=== PATIENT | female | born 1965 | race Caucasian/White ===

== ENCOUNTER 2017-11-11 18:27 | Emergency (ER) | payer OTHER, MEDICAID ==
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
[2017-11-11 20:33] VITALS: BP 149/72; PULSE 58; RESP 15; TEMP 97
== END 2017-11-11 20:31 | disposition home or self-care (01) ==
LOC: EC 18:27
DX: S16.1XXA Strain of muscle, fascia and tendon at neck level, initial encounter (principal); V89.2XXA Person injured in unspecified motor-vehicle accident, traffic, initial encounter; Y92.410 Unspecified street and highway as the place of occurrence of the external cause
CPT/HCPCS: 72125; 99284

== ENCOUNTER → 2017-11-21 | Outpatient (CLI) | payer MEDICAID ==
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
== END | disposition home or self-care (01) ==
LOC: RADXRYALE 09:31
PROVIDERS: ATTEND Physician Assistant Medical
DX: R07.89 Other chest pain (principal)

== ENCOUNTER → 2018-01-02 | Outpatient (CLI) | payer MEDICAID ==
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
== END | disposition home or self-care (01) ==
LOC: RADXRYALE 13:22
PROVIDERS: ATTEND Physician Assistant Medical
DX: M54.2 Cervicalgia (principal)
CPT/HCPCS: 72050

== ENCOUNTER → 2018-03-29 | Outpatient (CLI) | payer MEDICAID ==
--- NOTE | 2018-03-29 17:54 | CT ---
EXAMINATION TYPE: CT abdomen w con DATE OF EXAM: 03/29/2018 COMPARISON: 10/31/2008 HISTORY: 35 lbs gained in several months, jaundice, ascites CT DLP: 1542 mGycm Automated exposure control for dose reduction was used. TECHNIQUE: Helical acquisition of images was performed from the lung bases through the top of iliac crest to include entire abdomen. CONTRAST: Performed with Oral Contrast and with IV Contrast, patient injected with 100 mL of Isovue 300. FINDINGS: There are bilateral pleural effusions. This is larger on the right side. There is no pericardial effu viola. Heart is slightly enlarged. There is heterogeneity in the liver consistent with cirrhosis. There is no focal splenic mass. There is moderate ascites fluid in the abdomen. There is no evidence of pancreatic mass. Gallbladder is not seen. The bile ducts are not dilated. There is no adrenal mass. Kidneys show satisfactory contrast opacification. There is no hydronephrosi s. There is no retroperitoneal adenopathy. Oral contrast appears normal in the small bowel. There is no evidence of bowel obstruction. There is no sign of free air. There is no mesenteric adenopathy or edema. There is subcutaneous edema around the abdomen. Lumbar spine is intact. I see no bony destruct precious process. IMPRESSION: THERE IS MODERATELY SEVERE ASCITES. THERE IS HETEROGENEITY IN THE LIVER CONSISTENT WITH CIRRHOSIS. NO DISCRETE LIVER MASS IDENTIFIED. Changes of cirrhosis and the ascites are new compared to old CT scan. Bilateral pleural effusions new compared to old exam.
== END ==
LOC: RADCTMAIN 16:07
PROVIDERS: ATTEND Physician Assistant Medical
DX: R18.8 Other ascites (principal); R93.2 Abnormal findings on diagnostic imaging of liver and biliary tract
CPT/HCPCS: 74160; Q9967

== ENCOUNTER → 2018-04-04 | Outpatient (CLI) | payer MEDICAID ==
--- NOTE | 2018-04-05 07:27 | XR ---
EXAMINATION TYPE: XR chest 2V DATE OF EXAM: 04/04/2018 COMPARISON: Chest x-ray November 21, 2017. CT abdomen March 29, 2018 HISTORY: Right-sided pleural effusion, abnormal CT. TECHNIQUE: Frontal and lateral views of the chest are obtained. FINDINGS: There is persistent small right pleural effusion as seen on recent CT likely product of un derlying abdominal ascites and underlying cirrhosis. Trace left pleural effusion on CT is redemonstra ralph on chest x-ray with subtle blunting of posterior costophrenic angle. There is redemonstration of compressive atelectasis right lung base. Upper lungs are clear without pneumothorax. The cardiac silh ouette size is mildly enlarged. The osseous structures are intact. IMPRESSION: Stable small right pleural effusion and tiny left pleural effusion presumed product of u nderlying abdominal ascites.
== END | disposition home or self-care (01) ==
LOC: RADXRYALE 16:51
PROVIDERS: ATTEND Physician Assistant Medical
DX: J90 Pleural effusion, not elsewhere classified (principal)
CPT/HCPCS: 71046

== ENCOUNTER → 2018-04-17 | Outpatient (CLI) | payer MEDICAID ==
--- NOTE | 2018-04-17 10:42 | XR ---
EXAMINATION TYPE: XR chest 2V DATE OF EXAM: 04/17/2018 COMPARISON: Chest x-ray April 04, 2018 and older studies HISTORY: Pleural effusion, abnormal prior x-ray. History of suspected cirrhosis. TECHNIQUE: Frontal and lateral views of the chest are obtained. FINDINGS: There is now moderate to large size right pleural effusion increased from prior with assoc iated compressive atelectasis. There is new left basilar acute infiltrate and/or atelectasis. No med iastinal shift is present currently. The cardiac silhouette size is stable and mildly enlarged. The osseous structures are intact. Cholecystectomy clips are noted. IMPRESSION: Worsening moderate to large size right pleural effusion without mediastinal shift. Corre late clinically as patient would be candidate for ultrasound guided thoracentesis for therapeutic catrachita efits if felt necessary. A Yellow level critical message alert has been initiated for Elvis Smith DO via the [facility] Critical Results System on 04/17/2018 10:40 AM. This message alert has been sent to Elvis loyd DO via the preferences provided by the clinician for the receipt of Radiology Critical Findings . Message ID [id number].
== END | disposition home or self-care (01) ==
LOC: RADXRYALE 10:25
PROVIDERS: ATTEND Family Medicine
DX: J90 Pleural effusion, not elsewhere classified (principal)
CPT/HCPCS: 71046

== ENCOUNTER 2018-04-18 13:16 | Inpatient (IN) | payer MEDICAID ==
--- NOTE | 2018-04-18 14:33 | ED ---
General Adult HPI - General Chief complaint: Shortness of Breath Stated complaint: SOB Time Seen by Provider: 04/18/18 13:25 Source: patient, RN notes reviewed Mode of arrival: wheelchair Limitations: no limitations - History of Present Illness Initial comments: This is a 52-year-old female who comes in with a past medical history significant for cirrhosis. Patient states she's been having difficulty breathing over the last week or so and is getting progressively worse. Her doctor did an x-ray recently and told her she had fluid her left lung and after breathing were to get worse to coming to the hospital. Patient states it has gotten worse and she seen her into the hospital. Patient denies any palpitations or chest pain. Patient denies any cough. Patient denies any fever or chills. Patient denies any lightheadedness dizziness or near syncopal episode. Patient denies any abdominal pain patient denies nausea vomiting diarrhea. Patient's only complaint is shortness of breath. Patient states she' s got increased edema to her feet and her abdomen has also been distended but she believes that is slightly improved. - Related Data Home Medications Medication Instructions Recorded Confirmed Furosemide [Lasix] 80 mg PO DAILY 04/18/18 04/18/18 Potassium Chloride [Klor-Con 10] 10 meq PO Q48H 04/18/18 04/18/18 Spironolactone 50 mg PO DAILY 04/18/18 04/18/18 Allergies Allergy/AdvReac Type Severity Reaction Status Date / Time No Known Allergies Allergy Verified 04/18/18 14:20 Review of Systems ROS Statement: Those systems with pertinent positive or pertinent negative responses have been documented in the HPI. ROS Other: All systems not noted in ROS Statement are negative. Past Medical History Past Medical History: No Reported History Additional Past Medical History / Comment(s): cirrhosis History of Any Multi-Drug Resistant Organisms: None Reported Past Surgical History: Cholecystectomy Past Psychological History: No Psychological Hx Reported Smoking Status: Never smoker Past Alcohol Use History: None Reported Past Drug Use History: None Reported General Exam - General Exam Comments Initial Comments: GENERAL: Patient is well-developed and well-nourished. Patient is nontoxic and well- hydrated and is in mild distress. ENT: Neck is soft and supple. No significant lymphadenopathy is noted. Oropharynx is clear. Moist mucous membranes. Neck has full range of motion without eliciting any pain. EYES: The sclera were anicteric and conjunctiva were pink and moist. Extraocular movements were intact and pupils were equal round and reactive to light. Eyelids were unremarkable. PULMONARY: Patient has diminished breath sounds on the right about fci up. CARDIOVASCULAR: Patient is tachycardic at about 110 beats a minute ABDOMEN: Patient's abdomen is distended but nontender. SKIN: Skin is clear with no lesions or rashes and otherwise unremarkable. NEUROLOGIC: Patient is alert and oriented x3. Cranial nerves II through XII are grossly intact. Motor and sensory are also intact. Normal speech, volume and content. Symmetrical smile. MUSCULOSKELETAL: Normal extremities with adequate strength and full range of motion. Patient has 2+ edema bilaterally LYMPHATICS: No significant lymphadenopathy is noted PSYCHIATRIC: Normal psychiatric evaluation. Limitations: no limitations Course Vital Signs 04/18/18 04/18/18 04/18/18 13:24 15:23 15:24 Temperature 98.3 F Pulse Rate 111 H 104 H Respiratory 18 18 24 Rate Blood Pressure 124/58 123/63 O2 Sat by Pulse 96 94 L Oximetry Medical Decision Making - Medical Decision Making EKG shows sinus tachycardia at 102 beats a minute AR interval 252 QRS is 88 QT interval 372 QTC is 47. Patient's EKG shows no ST segment elevation or depression. Chest x-ray shows a very large right-sided pleural effusion. I spoke with Dr. Wright he agreed to admit the patient admitted the patient I consult pulmonary wrote admitting orders. - Lab Data Result diagrams: 04/18/18 14:13 04/18/18 14:13 Lab Results 04/18/18 04/18/18 04/18/18 Range/Units 14:13 14:13 14:13 WBC 11.2 H (3.8-10.6) k/uL RBC 3.84 (3.80-5.40) m/uL Hgb 12.9 (11.4-16.0) gm/dL Hct 40.3 (34.0-46.0) % MCV 104.9 H D (80.0-100.0) fL MCH 33.5 (25.0-35.0) pg MCHC 31.9 (31.0-37.0) g/dL RDW 14.0 (11.5-15.5) % Plt Count 187 (150-450) k/uL Neutrophils % 74 % Lymphocytes % 16 % Monocytes % 5 % Eosinophils % 3 % Basophils % 1 % Neutrophils # 8.4 H (1.3-7.7) k/uL Lymphocytes # 1.8 (1.0-4.8) k/uL Monocytes # 0.6 (0-1.0) k/uL Eosinophils # 0.3 (0-0.7) k/uL Basophils # 0.1 (0-0.2) k/uL Macrocytosis Moderate PT (9.0-12.0) sec INR (<1.2) APTT (22.0-30.0) sec Sodium 136 L (137-145) mmol/L Potassium 2.9 L (3.5-5.1) mmol/L Chloride 95 L (98-107) mmol/L Carbon Dioxide 32 H (22-30) mmol/L Anion Gap 9 mmol/L BUN 7 (7-17) mg/dL Creatinine 0.53 (0.52-1.04) mg/dL Est GFR (CKD-EPI)AfAm >90 (>60 ml/min/1.73 sqM) Est GFR (CKD-EPI)NonAf >90 (>60 ml/min/1.73 sqM) Glucose 107 H (74-99) mg/dL Calcium 8.3 L (8.4-10.2) mg/dL Magnesium 1.9 (1.6-2.3) mg/dL Total Bilirubin 10.6 H (0.2-1.3) mg/dL AST 115 H (14-36) U/L ALT 39 (9-52) U/L Alkaline Phosphatase 146 H (38-126) U/L Total Creatine Kinase 39 (30-135) U/L CK-MB (CK-2) 0.4 (0.0-2.4) ng/mL CK-MB (CK-2) Rel Index 1.0 Troponin I <0.012 (0.000-0.034) ng/mL NT-Pro-B Natriuret Pep pg/mL Total Protein 7.9 (6.3-8.2) g/dL Albumin 3.1 L (3.5-5.0) g/dL 04/18/18 04/18/18 Range/Units 14:13 14:13 WBC (3.8-10.6) k/uL RBC (3.80-5.40) m/uL Hgb (11.4-16.0) gm/dL Hct (34.0-46.0) % MCV (80.0-100.0) fL MCH (25.0-35.0) pg MCHC (31.0-37.0) g/dL RDW (11.5-15.5) % Plt Count (150-450) k/uL Neutrophils % % Lymphocytes % % Monocytes % % Eosinophils % % Basophils % % Neutrophils # (1.3-7.7) k/uL Lymphocytes # (1.0-4.8) k/uL Monocytes # (0-1.0) k/uL Eosinophils # (0-0.7) k/uL Basophils # (0-0.2) k/uL Macrocytosis PT 18.8 H (9.0-12.0) sec INR 1.9 H (<1.2) APTT 32.8 H (22.0-30.0) sec Sodium (137-145) mmol/L Potassium (3.5-5.1) mmol/L Chloride (98-107) mmol/L Carbon Dioxide (22-30) mmol/L Anion Gap mmol/L BUN (7-17) mg/dL Creatinine (0.52-1.04) mg/dL Est GFR (CKD-EPI)AfAm (>60 ml/min/1.73 sqM) Est GFR (CKD-EPI)NonAf (>60 ml/min/1.73 sqM) Glucose (74-99) mg/dL Calcium (8.4-10.2) mg/dL Magnesium (1.6-2.3) mg/dL Total Bilirubin (0.2-1.3) mg/dL AST (14-36) U/L ALT (9-52) U/L Alkaline Phosphatase (38-126) U/L Total Creatine Kinase (30-135) U/L CK-MB (CK-2) (0.0-2.4) ng/mL CK-MB (CK-2) Rel Index Troponin I (0.000-0.034) ng/mL NT-Pro-B Natriuret Pep 401 pg/mL Total Protein (6.3-8.2) g/dL Albumin (3.5-5.0) g/dL Disposition Clinical Impression: Pleural effusion, Dyspnea, Hypokalemia, Coagulopathy Disposition: ADMITTED IP TO THIS HOSP Referrals: Elvis Smith DO [Primary Care Provider] - 1-2 days Time of Disposition: 15:55
[2018-04-18 14:56] LABS: ALT 39 U/L (9-52); AST 115 U/L (14-36); Albumin 3.1 g/dL (3.5-5.0); Alkaline Phosphatase 146 U/L (38-126); Anion Gap 9 mmol/L; Blood Urea Nitrogen 7 mg/dL (7-17); Calcium 8.3 mg/dL (8.4-10.2); Carbon Dioxide 32 mmol/L (22-30); Chloride 95 mmol/L (98-107); Glucose 107 mg/dL (74-99); Magnesium 1.9 mg/dL (1.6-2.3); Potassium 2.9 mmol/L (3.5-5.1); Sodium 136 mmol/L (137-145); Total Bilirubin 10.6 mg/dL (0.2-1.3); Total Protein 7.9 g/dL (6.3-8.2)
[2018-04-18 15:00] LABS: INR 1.9 (<1.2); Partial Thromboplastin Time 32.8 sec (22.0-30.0); Prothrombin Time 18.8 sec (9.0-12.0)
[2018-04-18 15:04] LABS: Basophils # (A) 0.1 k/uL (0-0.2); Basophils % (A) 1 %; Creatine Kinase 39 U/L (30-135); Eosinophils # (A) 0.3 k/uL (0-0.7); Eosinophils % (A) 3 %; HCT 40.3 % (34.0-46.0); HGB 12.9 gm/dL (11.4-16.0); Lymphocytes # (A) 1.8 k/uL (1.0-4.8); Lymphocytes % (A) 16 %; MCH 33.5 pg (25.0-35.0); MCHC 31.9 g/dL (31.0-37.0); Macrocytosis Moderate; Mean Platelet Volume 7.7; Monocytes # (A) 0.6 k/uL (0-1.0); Monocytes % (A) 5 %; Neutrophils # (A) 8.4 k/uL (1.3-7.7); Neutrophils % (A) 74 %; Platelet Count 187 k/uL (150-450); RBC 3.84 m/uL (3.80-5.40); WBC 11.2 k/uL (3.8-10.6)
[2018-04-18 15:07] LABS: MCV 104.9 fL (80.0-100.0)
[2018-04-18 15:16] LABS: Creatine Kinase MB 0.4 ng/mL (0.0-2.4); Troponin I <0.012 ng/mL (0.000-0.034)
--- NOTE | 2018-04-18 15:47 | XR ---
EXAMINATION TYPE: XR chest 2V DATE OF EXAM: 04/18/2018 COMPARISON: 04/17/2018 HISTORY: Shortness of breath TECHNIQUE: Frontal and lateral views of the chest are obtained. FINDINGS: Scattered senescent parenchymal changes noted. Hyperinflation compatible with COPD. Large right-sided pleural effusion with underlying atelectasis, infiltrate or mass difficult to exclu de. Overall no significant change. Small left-sided effusion noted as well. Pulmonary venous congesti on. Heart size is stable. Mediastinal structures are stable and grossly unremarkable. No evidence for hilar prominence. Degenerative changes dorsal spine. IMPRESSION: 1. Stable chest.
[2018-04-18] MEDS ORDERED: SODIUM CHLORIDE 0.9% 1,000 ML IV ONE (15:58)
[2018-04-18] MEDS ORDERED: Potassium Replacement Protocol 1 EACH MISC MISCELLANE PRN ×2 (15:59→20:14)
[2018-04-18] MEDS ORDERED: PHYTONADIONE ORAL 5 MG/5 ML ORAL.SYRG PO STA (19:32)
--- NOTE | 2018-04-18 20:04 | US ---
EXAMINATION TYPE: US chest DATE OF EXAM: 04/18/2018 COMPARISON: NONE CLINICAL HISTORY: Markings for thoracentesis by pulmonary staff. SOB TECHNIQUE: Targeted ultrasound of the posterior lower bilaterally EXAM MEASUREMENTS: Right Pleural Effusion pocket size: 9.3 cm Right skin surface to fluid distance: 4.0 cm Left Pleural Effusion pocket size: 1.9 cm Right side marked for possible thoracentesis outside the dept. Left side NOT marked - pocket size too small Pulmonologists are able to review the images in the patient?s EMR. IMPRESSIONS: BILATERAL PLEURAL EFFUSION, GREATER ON THE RIGHT.
--- NOTE | 2018-04-18 20:05 | US ---
EXAMINATION TYPE: US abdomen limited DATE OF EXAM: 04/18/2018 COMPARISON: NONE CLINICAL HISTORY: ascites. distended abd, jaundice Moderate amount of free fluid noted during quadrant scan of abdomen, particularly in the lower quadra nts. IMPRESSION: PERITONEAL FLUID.
[2018-04-18] MEDS ORDERED: Magnesium Replacement Protocol 1 EACH MISC MISCELLANE PRN (20:14)
[2018-04-18] MEDS: POTASSIUM CHLORIDE ER 20 MEQ TAB.ER PO SCH ×3 (20:45→23:23)
--- NOTE | 2018-04-19 00:02 | P.HPIM ---
History of Present Illness H&P Date: 04/18/18 Chief Complaint: Shortness of breath Patient is a 52-year-old female with a known history of recently diagnosed alcoholic liver cirrhosis about a month back, came to ER with complaints of worsening shortness of breath for the past 2 weeks. Patient also having abdominal distention. No complaints of fever or chills. No complaints of abdominal pain. No nausea vomiting or diarrhea. Patient says that she is having yellowish discoloration. Patient was seen by her primary care physician and had chest x-ray which showed fluid in her left lung and was recommended to go to the hospital for evaluation. Denied any cough or sputum production. Patient denied any lightheadedness, dizziness syncopal episode. Patient states she's got increased edema to her feet and her abdomen has also been distended but she believes that is slightly improved. Patient follows with GI clinic, Dr. Orozco. Chest x-ray showed large right-sided pleural effusion and small left pleural effusion. Ultrasound of the abdomen showed moderate ascites. INR 1.9 and potassium 2.9 Albumin 3.1 Bilirubin 10.6 Review of Systems Constitutional: Patient denies any fever or chills . No generalized weakness or weight loss. Abdomen: Patient denied nausea vomiting and diarrhea and abdominal pain. Cardiovascular: Patient denies any chest pain or short of breath no palpitations. Respiratory: Patient denied any complaints of cough or sputum production. Does have shortness of breath Neurologic: Patient denied any numbness or tingling headache. Musculoskeletal: Patient denies any complaints of joint swelling or deformity. Skin: Yellowish Discoloration Psychiatric: Negative Endocrine: No heat or cold intolerance. No recent weight gain. Genitourinary: No dysuria or hematuria. All other 14 point ROS negative except the above Past Medical History Past Medical History: No Reported History Additional Past Medical History / Comment(s): cirrhosis History of Any Multi-Drug Resistant Organisms: None Reported Past Surgical History: Cholecystectomy Past Psychological History: No Psychological Hx Reported Smoking Status: Never smoker Past Alcohol Use History: None Reported Past Drug Use History: None Reported - Past Family History Mother Family Medical History: Eye Disorder Additional Family Medical History / Comment(s): macular degeneration Father Additional Family Medical History / Comment(s): seizure like activity but no dx yet Medications and Allergies Home Medications Medication Instructions Recorded Confirmed Type Furosemide [Lasix] 80 mg PO DAILY 04/18/18 04/18/18 History Potassium Chloride [Klor-Con 10] 10 meq PO Q48H 04/18/18 04/18/18 History Spironolactone 50 mg PO DAILY 04/18/18 04/18/18 History Allergies Allergy/AdvReac Type Severity Reaction Status Date / Time No Known Allergies Allergy Verified 04/18/18 14:20 Physical Exam Vitals: Vital Signs Temp Pulse Resp BP Pulse Ox 04/18/18 18:39 98.3 F 101 H 18 137/70 94 L 04/18/18 18:22 101 H 18 137/70 94 L 04/18/18 17:40 101 H 18 135/57 97 04/18/18 15:24 24 04/18/18 15:23 104 H 18 123/63 94 L 04/18/18 13:24 98.3 F 111 H 18 124/58 96 Intake and Output 04/18/18 04/18/18 04/18/18 06:59 14:59 22:59 Other: Weight 104.78 kg PHYSICAL EXAMINATION: Patient is lying in the bed comfortably, no acute distress, awake alert and oriented.. HEENT: Normocephalic. Neck is supple. Pupils reactive. icteric. Nostrils clear. Oral cavity is moist. Ears reveal no drainage. Neck reveals no JVD, carotid bruits, or thyromegaly. CHEST EXAMINATION: Trachea is central. Symmetrical expansion. Left basilar crackles and right lower lung diminished breath sounds. No wheezing. CARDIAC: Normal S1, S2 with no gallops. No murmurs ABDOMEN: Soft. Bowel sounds normal. No organomegaly. No abdominal bruits. Extremities: reveal no edema. No clubbing or cyanosis Neurologically awake, alert, oriented x3 with well-coordinated movements. No focal deficits noted Skin: No rash or skin lesions. Psychiatric: Coperative. Nonsuicidal Musculoskeletal: No joint swelling or deformity. Normal range of motion. Results CBC & Chem 7: 04/18/18 14:13 04/18/18 14:13 Labs: Abnormal Lab Results - Last 24 Hours (Table) 04/18/18 04/18/18 04/18/18 Range/Units 14:13 14:13 14:13 WBC 11.2 H (3.8-10.6) k/uL MCV 104.9 H D (80.0-100.0) fL Neutrophils # 8.4 H (1.3-7.7) k/uL PT 18.8 H (9.0-12.0) sec INR 1.9 H (<1.2) APTT 32.8 H (22.0-30.0) sec Sodium 136 L (137-145) mmol/L Potassium 2.9 L (3.5-5.1) mmol/L Chloride 95 L (98-107) mmol/L Carbon Dioxide 32 H (22-30) mmol/L Glucose 107 H (74-99) mg/dL Calcium 8.3 L (8.4-10.2) mg/dL Total Bilirubin 10.6 H (0.2-1.3) mg/dL AST 115 H (14-36) U/L Alkaline Phosphatase 146 H (38-126) U/L Albumin 3.1 L (3.5-5.0) g/dL Assessment and Plan Assessment: Shortness of breath secondary to large right pleural effusion and abdominal distention with ascites Moderate ascites Alcoholic liver cirrhosis Coagulopathy secondary to liver disease Alcohol abuse Macrocytosis Hyperbilirubinemia Hypoalbuminemia Morbid obesity BMI 36.2 Plan: Patient will be continued on Lasix and spironolactone. Pulmonary was consulted for further evaluation of pleural effusion and thoracentesis. Continue to follow closely. Further recommendations based on the clinical course. Prognosis is guarded. Time with Patient: Greater than 30
[2018-04-19 07:59] LABS: ALT 39 U/L (9-52); AST 86 U/L (14-36); Albumin 2.3 g/dL (3.5-5.0); Alkaline Phosphatase 97 U/L (38-126); Anion Gap 5 mmol/L; Blood Urea Nitrogen 9 mg/dL (7-17); Calcium 7.9 mg/dL (8.4-10.2); Carbon Dioxide 33 mmol/L (22-30); Chloride 99 mmol/L (98-107); Glucose 92 mg/dL (74-99); Magnesium 1.8 mg/dL (1.6-2.3); Potassium 3.4 mmol/L (3.5-5.1); Sodium 137 mmol/L (137-145); Total Bilirubin 8.4 mg/dL (0.2-1.3); Total Protein 6.2 g/dL (6.3-8.2)
[2018-04-19 08:05] LABS: Prothrombin Time 19.9 sec (9.0-12.0)
[2018-04-19 08:21] LABS: Basophils # (A) 0.1 k/uL (0-0.2); Basophils % (A) 1 %; Eosinophils # (A) 0.4 k/uL (0-0.7); Eosinophils % (A) 4 %; HGB 11.1 gm/dL (11.4-16.0); Lymphocytes # (A) 1.9 k/uL (1.0-4.8); Lymphocytes % (A) 20 %; MCH 33.7 pg (25.0-35.0); MCHC 31.7 g/dL (31.0-37.0); MCV 106.5 fL (80.0-100.0); Macrocytosis Moderate; Mean Platelet Volume 7.3; Monocytes # (A) 0.5 k/uL (0-1.0); Monocytes % (A) 5 %; Neutrophils # (A) 6.5 k/uL (1.3-7.7); Neutrophils % (A) 69 %; Platelet Count 149 k/uL (150-450); RBC 3.28 m/uL (3.80-5.40); RDW 13.9 % (11.5-15.5); WBC 9.4 k/uL (3.8-10.6)
[2018-04-19] MEDS: POTASSIUM CHLORIDE ER 10 MEQ TAB.ER.PRT PO SCH (08:33)
[2018-04-19] MEDS: FUROSEMIDE 40 MG TAB PO SCH (08:33)
[2018-04-19] MEDS: SPIRONOLACTONE 25 MG TAB PO SCH (08:33)
--- NOTE | 2018-04-19 12:20 | P.CNPUL ---
History of Present Illness Consult date: 04/19/18 Requesting physician: Moses Wright Reason for consult: dyspnea, abnormal CXR/CT Chief complaint: Shortness of breath History of present illness: This is a very pleasant 52-year-old female patient who follows with Dr. Bridges as her primary care physician. She has a history of alcoholic cirrhosis. This is a fairly recent diagnosis. She has been seen by Dr. Orozco. She admits to significant alcohol use due to her poor coping mechanism after the loss of her . No other significant history. She is a nonsmoker. She presented here to the emergency room yesterday with having increasing shortness of breath. Progressive dyspnea on exertion. She had been seen by her PCP earlier was told she had fluid in her left lung and if it were to get worse to come to the hospital. Her chest x-ray here revealed significant right- sided pleural effusion with minimal left-sided pleural effusion. Ultrasound of the chest revealed a 9.3 cm pocket on the right. 1.9 cm on the left. Abdominal ultrasound revealed significant peritoneal fluid as well. White count 9.4. Hemoglobin 11.1. MCV 106.5. Platelets 149,000. INR 2.0. Creatinine 0.51. AST 186. Albumin 2.3. Total protein 6.2. Hepatitis screen on 03/28/2018 was negative. She is seen today in consultation on the regular medical floor. She is awake and alert in no acute distress. She is dyspneic with minimal exertion. Maintaining O2 saturations in the 90s on room air. She is jaundice, sclera icteric. Currently on Lasix 80 mg by mouth daily along with Aldactone 50 mg daily. Review of Systems Constitutional: Reports fatigue, Reports lethargy, Reports weight gain Eyes: denies blurred vision, denies decreased vision Ears: deny: decreased hearing Ears, nose, mouth and throat: Denies headache, Denies sore throat Cardiovascular: Reports dyspnea on exertion, Reports shortness of breath Respiratory: Reports dyspnea Gastrointestinal: Reports abdominal pain, Reports bloating, Reports jaundice Genitourinary: Denies dysuria, Denies hematuria Musculoskeletal: Denies myalgias Integumentary: Reports color changes Neurological: Denies numbness, Denies weakness Psychiatric: Denies anxiety, Denies depression Endocrine: Denies fatigue, Denies weight change Hematologic/Lymphatic: Reports as per HPI Allergic/Immunologic: Reports as per HPI Past Medical History Past Medical History: No Reported History Additional Past Medical History / Comment(s): cirrhosis History of Any Multi-Drug Resistant Organisms: None Reported Past Surgical History: Cholecystectomy Past Anesthesia/Blood Transfusion Reactions: Postoperative Nausea & Vomiting ( PONV) Past Psychological History: No Psychological Hx Reported Smoking Status: Never smoker Past Alcohol Use History: None Reported Past Drug Use History: None Reported - Past Family History Mother Family Medical History: Eye Disorder Additional Family Medical History / Comment(s): macular degeneration Father Additional Family Medical History / Comment(s): seizure like activity but no dx yet Medications and Allergies Home Medications Medication Instructions Recorded Confirmed Type Furosemide [Lasix] 80 mg PO DAILY 04/18/18 04/18/18 History Potassium Chloride [Klor-Con 10] 10 meq PO Q48H 04/18/18 04/18/18 History Spironolactone 50 mg PO DAILY 04/18/18 04/18/18 History Allergies Allergy/AdvReac Type Severity Reaction Status Date / Time No Known Allergies Allergy Verified 04/18/18 14:20 Physical Exam Vitals: Vital Signs Temp Pulse Pulse Pulse Resp BP BP 04/19/18 08:36 101 H 18 128/70 04/19/18 08:00 101 H 18 04/19/18 05:00 98.2 F 103 H 16 100/51 04/18/18 19:05 98.1 F 99 18 123/66 04/18/18 18:39 98.3 F 101 H 18 137/70 04/18/18 18:22 101 H 18 137/70 04/18/18 17:40 101 H 18 135/57 04/18/18 15:24 24 04/18/18 15:23 104 H 18 123/63 04/18/18 13:24 98.3 F 111 H 18 124/58 Pulse Ox 04/19/18 08:36 90 L 04/19/18 08:00 04/19/18 05:00 91 L 04/18/18 19:05 94 L 04/18/18 18:39 94 L 04/18/18 18:22 94 L 04/18/18 17:40 97 04/18/18 15:24 04/18/18 15:23 94 L 04/18/18 13:24 96 Intake and Output 04/18/18 04/19/18 04/19/18 22:59 06:59 14:59 Intake Total 1080 840 Balance 1080 840 Intake: Intake, IV Titration 300 Amount Sodium Chloride 0.9% 1, 300 000 ml @ 75 mls/hr IV . [id number] ONE Rx#:[id number] Oral 1080 540 Other: # Voids 3 2 - Constitutional General appearance: average body habitus, no acute distress - EENT Eyes: EOMI, PERRLA, scleral icterus ENT: hearing grossly normal Ears: bilateral: normal - Neck Neck: normal ROM Carotids: bilateral: upstroke normal Thyroid: bilateral: normal size - Respiratory Respiratory: right: diminished, rales - Cardiovascular Rhythm: regular Heart sounds: normal: S1, S2 - Gastrointestinal General gastrointestinal: distended, hepatomegaly, normal bowel sounds, tenderness Localized gastrointestinal: tender: diffuse - Integumentary Integumentary: normal turgor - Neurologic Neurologic: CNII-XII intact - Musculoskeletal Musculoskeletal: gait normal - Psychiatric Psychiatric: A&O x's 3, appropriate affect, intact judgment & insight Results - Laboratory Findings CBC and BMP: 04/19/18 07:22 04/19/18 07:22 PT/INR, D-dimer PT 19.9 sec (9.0-12.0) H 04/19/18 07:22 INR 2.0 (<1.2) H 04/19/18 07:22 Abnormal lab findings: Abnormal Labs 04/18/18 04/18/18 04/18/18 14:13 14:13 14:13 WBC 11.2 H RBC Hgb MCV 104.9 H D Plt Count Neutrophils # 8.4 H PT 18.8 H INR 1.9 H APTT 32.8 H Sodium 136 L Potassium 2.9 L Chloride 95 L Carbon Dioxide 32 H Creatinine Glucose 107 H Calcium 8.3 L Total Bilirubin 10.6 H AST 115 H Alkaline Phosphatase 146 H Total Protein Albumin 3.1 L 04/19/18 04/19/18 04/19/18 07:22 07:22 07:22 WBC RBC 3.28 L Hgb 11.1 L MCV 106.5 H Plt Count 149 L Neutrophils # PT 19.9 H INR 2.0 H APTT Sodium Potassium 3.4 L Chloride Carbon Dioxide 33 H Creatinine 0.51 L Glucose Calcium 7.9 L Total Bilirubin 8.4 H AST 86 H Alkaline Phosphatase Total Protein 6.2 L Albumin 2.3 L - Diagnostic Findings Chest x-ray: image reviewed Assessment and Plan Assessment: Impression: #1 Dyspnea secondary to a large right-sided pleural effusion and small left pleural effusion. #2 Abdominal distention with moderate peritoneal fluid secondary to cirrhosis. #3 Alcoholic cirrhosis. #4 Hypercoagulable state secondary to above. Current INR 2.0. #5 Elevated AST secondary to above. #6 Poor coping mechanisms secondary to the loss of her . Plan: The patient was seen and evaluated by Dr. Ramey. Chest x-ray, ultrasounds and labs all reviewed. We will plan for a thoracentesis of the right pleural effusion once INR is corrected. The patient may benefit from a paracentesis as well. Continue diuretics. Electrolyte replacement. She is counseled regarding the importance of complete alcohol cessation. We will continue to follow and make further recommendations based on her clinical status. I, the cosigning physician, performed a history & physical examination of the patient. Lungs sounds diminished right greater than left. Maintaining good O2 saturations in the 90s on room air. I discussed the assessment and plan of care with my nurse practitioner, Maxine Chacon. I attest to the above consultation as dictated by her. Time with Patient: Greater than 30
--- NOTE | 2018-04-19 18:47 | XR ---
EXAMINATION: XR chest 1V portable DATE AND TIME: 04/19/2018 6:03 PM CLINICAL INDICATION: PHH; S/P thoracentesis TECHNIQUE: AP upright portable COMPARISON: 04/18/2018 at 3:47 PM FINDINGS: The findings seen on yesterday's radiograph are redemonstrated. Specifically, the large right pleural effusion with complete atelectasis of the right lower lobe and right middle lobe and some of the right upper lobe is redemonstrated. On the right, the volume of pleural effusion appears minimally less on the present study. On the left, the pleural effusion and partial airlessness of the left lower lung zone appears to have increased to a mild degree. There is no pneumothorax. IMPRESSION: Slight interval improvement in the right upper lung zone inflation. Mild interval decrease in the lower left lung zone inflation.
[2018-04-19 20:53] LABS: Appearance,BF Cloudy; Color,BF Orange
[2018-04-19 22:09] LABS: Nucleated Cells, Body Fluid 100 /uL; RBC, Body Fluid 15000 /uL
[2018-04-19 22:19] LABS: Mononuclear WBC,Body Fluid 76 %; Polynuclear WBC,Body Fluid 23 %; Total Cells Counted,Body Fluid 100
--- NOTE | 2018-04-19 23:36 | PCN ---
PROCEDURE NOTE PROCEDURE: Right-sided thoracentesis. PREOPERATIVE DIAGNOSES: Liver cirrhosis, ascites, and right pleural effusion. POSTOPERATIVE DIAGNOSES: Liver cirrhosis, ascites, and right pleural effusion. ANESTHESIA: 2 mL of 1% lidocaine. PROCEDURE DESCRIPTION: The patient was prepared and was placed in a sitting upright position. The area below the right scapula was prepared in a sterile fashion and drapes were applied. The area was earlier localized by ultrasound guidance, and it correlated to the level of the 8th intercostal space and tip of the scapula. After local anesthetic applied, a 26-gauge needle was inserted at the same site, advanced into the pleural space until the fluid was localized. Then a small tiny incision was made, and a standard 8-[place]izen [place] thoracentesis catheter and needle were used, advanced into the pleural space until the fluid was obtained. Then, the catheter was advanced further into the pleural space and the needle was pulled out of the pleural space. Freely flowing fluid was drained, roughly 2700 mL of serosanguineous fluid was drained from the right pleural space. Procedure was well tolerated, no evidence of any immediate complications. Chest x-ray was ordered postoperatively. The fluid was sent for different diagnostic studies. MMODL / IJN: [id number] /
[2018-04-20 03:17] LABS: Total Protein, Body Fluid 1680 mg/dL
[2018-04-20 08:19] LABS: INR 1.8 (<1.2); Prothrombin Time 18.1 sec (9.0-12.0)
[2018-04-20 08:58] LABS: Basophils # (A) 0.1 k/uL (0-0.2); Basophils % (A) 1 %; Eosinophils # (A) 0.3 k/uL (0-0.7); Eosinophils % (A) 3 %; HCT 34.3 % (34.0-46.0); HGB 10.9 gm/dL (11.4-16.0); Lymphocytes # (A) 2.1 k/uL (1.0-4.8); Lymphocytes % (A) 21 %; MCHC 31.8 g/dL (31.0-37.0); MCV 106.8 fL (80.0-100.0); Macrocytosis Moderate; Mean Platelet Volume 7.5; Monocytes # (A) 0.6 k/uL (0-1.0); Monocytes % (A) 6 %; Neutrophils # (A) 6.8 k/uL (1.3-7.7); Neutrophils % (A) 68 %; Platelet Count 141 k/uL (150-450); RBC 3.21 m/uL (3.80-5.40); RDW 13.9 % (11.5-15.5); WBC 9.9 k/uL (3.8-10.6)
[2018-04-20] MEDS: SPIRONOLACTONE 25 MG TAB PO SCH (09:20)
[2018-04-20] MEDS: FUROSEMIDE 40 MG TAB PO SCH (09:20)
--- NOTE | 2018-04-20 10:38 | P.CONS ---
History of Present Illness - Reason for Consult Consult date: 04/20/18 Ascites Requesting physician: Cuca Ramey - Chief Complaint Shortness of breath - History of Present Illness 52-year-old female history of alcohol liver cirrhosis admitted with shortness of breath. Chest x-ray reported bilateral pleural effusion s/p thoracentesis. Ultrasound moderate ascites. White count 9.4. Hemoglobin 11.1. Platelet 149. INR 2. Total bilirubin 8.4. AST 86. ALT 39. AP 97. Review of Systems Constitutional: Denies fever, chills, sweats, weight gain, or loss. HEENT: Negative for migraines, blurred vision or loss, earaches, drainage, tinnitus, oral mucosal lesions, dysphagia, or odynophagia. CARDIAC: Negative for chest pain, arrhythmias, or palpitation. RESPIRATORY: Admitted with shortness of breath, denies hemoptysis, cough, or sputum production. GI: See HPI for pertinent findings. : Negative for hematuria, urgency, frequency, polyuria, or dysuria. GYNc: Denies possibility of . Negative vaginal discharge. MUSCULOSKELETAL: Negative for muscle aches, swelling, arthritis, and arthralgias. NEUROLOGIC: Negative for stroke or TIA. ENDOCRINE: Negative for thyroid problems. SKIN: Negative for rash or itching. PSYCHIATRIC: Negative history for depression and anxiety Past Medical History Past Medical History: No Reported History Additional Past Medical History / Comment(s): cirrhosis History of Any Multi-Drug Resistant Organisms: None Reported Past Surgical History: Cholecystectomy Past Anesthesia/Blood Transfusion Reactions: Postoperative Nausea & Vomiting ( PONV) Past Psychological History: No Psychological Hx Reported Smoking Status: Never smoker Past Alcohol Use History: None Reported Past Drug Use History: None Reported - Past Family History Mother Family Medical History: Eye Disorder Additional Family Medical History / Comment(s): macular degeneration Father Additional Family Medical History / Comment(s): seizure like activity but no dx yet Medications and Allergies Home Medications Medication Instructions Recorded Confirmed Type Furosemide [Lasix] 80 mg PO DAILY 04/18/18 04/18/18 History Potassium Chloride [Klor-Con 10] 10 meq PO Q48H 04/18/18 04/18/18 History Spironolactone 50 mg PO DAILY 04/18/18 04/18/18 History Allergies Allergy/AdvReac Type Severity Reaction Status Date / Time No Known Allergies Allergy Verified 04/18/18 14:20 Physical Exam Vitals: Vital Signs Temp Pulse Pulse Pulse Resp BP BP 04/20/18 05:00 98.3 F 104 H 16 108/51 04/20/18 03:31 98.2 F 105 H 18 115/72 04/20/18 00:00 104 H 101 H 16 04/19/18 21:00 98.3 F 106 H 16 117/58 04/19/18 18:34 98 F 105 H 18 120/73 04/19/18 18:00 98.1 F 109 H 16 124/76 04/19/18 17:50 98.0 F 114 H 16 130/77 04/19/18 17:44 98.0 F 114 H 16 130/77 04/19/18 16:42 97.5 F L 108 H 16 137/78 04/19/18 16:12 97.9 F 107 H 18 127/76 04/19/18 16:02 98 F 108 H 18 135/74 04/19/18 16:00 101 H 16 04/19/18 13:20 98.1 F 107 H 16 118/58 04/19/18 08:36 101 H 18 04/19/18 08:00 101 H 18 BP Pulse Ox 04/20/18 05:00 94 L 04/20/18 03:31 98 04/20/18 00:00 04/19/18 21:00 94 L 04/19/18 18:34 98 04/19/18 18:00 98 04/19/18 17:50 04/19/18 17:44 91 L 04/19/18 16:42 95 04/19/18 16:12 95 04/19/18 16:02 94 L 04/19/18 16:00 04/19/18 13:20 95 04/19/18 08:36 128/70 90 L 04/19/18 08:00 Intake and Output 04/19/18 04/20/18 04/20/18 22:59 06:59 14:59 Intake Total 1168 0 Balance 1168 0 Intake: Oral 830 Blood Product 338 0 Ffp 24 Cpd Unit 338 [id number] Ffp 24 Cpd Unit 0 0 [id number] Other: # Voids 2 General appearance: The patient is alert, oriented, in no acute distress. HET: Head is normocephalic and atraumatic. Pupils are equal and reactive. Oropharynx is clear without lesions. Neck: Supple without lymphadenopathy. Trachea midline. Heart: S1 S2. Regular rate and rhythm. Lungs: No crackles or wheezes are heard. Abdomen: Soft, nontender, nondistended with bowel sounds. No peritoneal signs. No palpable organomegaly or masses. Extremities: Normal skin color and turgor. No cyanosis, rash, ulceration, clubbing, or edema. Radial and pedal pulses are 2/4 bilaterally. Neurological: No focal deficits. Strength and sensation are grossly intact. Results CBC & Chem 7: 04/20/18 06:46 04/19/18 07:22 Labs: Abnormal Lab Results - Last 24 Hours (Table) 04/19/18 04/19/18 04/19/18 Range/Units 07:22 07:22 07:22 RBC 3.28 L (3.80-5.40) m/uL Hgb 11.1 L (11.4-16.0) gm/dL MCV 106.5 H (80.0-100.0) fL Plt Count 149 L (150-450) k/uL PT 19.9 H (9.0-12.0) sec INR 2.0 H (<1.2) Potassium 3.4 L (3.5-5.1) mmol/L Carbon Dioxide 33 H (22-30) mmol/L Creatinine 0.51 L (0.52-1.04) mg/dL Calcium 7.9 L (8.4-10.2) mg/dL Total Bilirubin 8.4 H (0.2-1.3) mg/dL AST 86 H (14-36) U/L Total Protein 6.2 L (6.3-8.2) g/dL Albumin 2.3 L (3.5-5.0) g/dL Microbiology - Last 24 Hours (Table) 04/19/18 17:45 Gram Stain - Preliminary Pleural Fluid Body Fluid Culture - Preliminary 04/19/18 17:45 Acid Fast Bacilli Culture - Preliminary Pleural Fluid US - abdomen: report reviewed (Dr. Lubin) Assessment and Plan (1) Alcoholic cirrhosis of liver with ascites Current Visit: Yes Status: Acute Code(s): K70.31 - ALCOHOLIC CIRRHOSIS OF LIVER WITH ASCITES SNOMED Code(s): 167950249 (2) Coagulopathy Current Visit: Yes Status: Acute Code(s): D68.9 - COAGULATION DEFECT, UNSPECIFIED SNOMED Code(s): 96454935 (3) Dyspnea Current Visit: Yes Status: Acute Code(s): R06.00 - DYSPNEA, UNSPECIFIED SNOMED Code(s): 791391849 (4) Pleural effusion Narrative/Plan: s/p thoracentesis Current Visit: Yes Status: Acute Code(s): J90 - PLEURAL EFFUSION, NOT ELSEWHERE CLASSIFIED SNOMED Code(s): 32088434 (5) ETOH abuse Current Visit: Yes Status: Acute Code(s): F10.10 - ALCOHOL ABUSE, UNCOMPLICATED SNOMED Code(s): 58686122 Plan: 1. Lasix Aldactone daily. Paracentesis. Low-salt diet. Alcohol cessation advised. Daily CBC CMP PT/INR. Check ammonia. Thank you for this kind referral and the opportunity to participate in the care of your patient. This consultation was discussed with Dr. Lubin. The impression and plan of care have been directed as dictated.
--- NOTE | 2018-04-20 13:29 | P.PN ---
Subjective Progress Note Date: 04/20/18 Principal diagnosis: Large right pleural effusion This is a very pleasant 52-year-old female patient who follows with Dr. Bridges as her primary care physician. She has a history of alcoholic cirrhosis. This is a fairly recent diagnosis. She has been seen by Dr. Orozco. She admits to significant alcohol use due to her poor coping mechanism after the loss of her . No other significant history. She is a nonsmoker. She presented here to the emergency room yesterday with having increasing shortness of breath. Progressive dyspnea on exertion. She had been seen by her PCP earlier was told she had fluid in her left lung and if it were to get worse to come to the hospital. Her chest x-ray here revealed significant right- sided pleural effusion with minimal left-sided pleural effusion. Ultrasound of the chest revealed a 9.3 cm pocket on the right. 1.9 cm on the left. Abdominal ultrasound revealed significant peritoneal fluid as well. White count 9.4. Hemoglobin 11.1. MCV 106.5. Platelets 149,000. INR 2.0. Creatinine 0.51. AST 186. Albumin 2.3. Total protein 6.2. Hepatitis screen on 03/28/2018 was negative. She is seen today in consultation on the regular medical floor. She is awake and alert in no acute distress. She is dyspneic with minimal exertion. Maintaining O2 saturations in the 90s on room air. She is jaundice, sclera icteric. Currently on Lasix 80 mg by mouth daily along with Aldactone 50 mg daily. The patient is seen today 04/20/2017 in follow-up on the regular medical floor. She did undergo a right-sided thoracentesis by Dr. Weber yesterday with 2700 ML's of serosanguineous fluid returned. Fluid analysis pending. She is breathing much easier today. Maintaining good O2 saturations in the 90s on room air. She still has some abdominal discomfort. She's been seen by GI services who request interventional radiology to perform a paracentesis. INR 1.8 today. She remains on Lasix 80 mg daily along with Aldactone. Objective - Vital Signs Vital signs: Vital Signs Temp 98.1 F 04/20/18 12:01 Pulse 99 04/20/18 12:01 Resp 17 04/20/18 12:01 BP 138/77 04/20/18 12:01 Pulse Ox 94 L 04/20/18 05:00 Intake & Output 04/19/18 04/20/18 04/20/18 18:59 06:59 18:59 Intake Total 578 590 Balance 578 590 Intake: Oral 240 590 Blood Product 338 0 Ffp 24 Cpd Unit 338 [id number] Ffp 24 Cpd Unit 0 0 [id number] Other: # Voids 3 2 - Exam GENERAL EXAM: Alert, fairly comfortable in no apparent distress. On chest. HEAD: Normocephalic. EYES: Normal reaction of pupils, equal size. Iicteric sclera. NOSE: Clear with pink turbinates. THROAT: No erythema or exudates. NECK: No masses, no JVD. CHEST: No chest wall deformity. LUNGS: Equal air entry with crackles in the posterior bases right greater than left. CVS: S1 and S2 normal with no audible murmur, regular rhythm. ABDOMEN: Distended. Positive fluid wave, normal bowel sounds, no guarding or rigidity. SPINE: No scoliosis or deformity SKIN: No rashes CENTRAL NERVOUS SYSTEM: No focal deficits, tone is normal in all 4 extremities. EXTREMITIES: There is no peripheral edema. No clubbing, no cyanosis. Peripheral pulses are intact. - Labs CBC & Chem 7: 04/20/18 06:46 04/19/18 07:22 Labs: Abnormal Lab Results - Last 24 Hours (Table) 04/20/18 04/20/18 Range/Units 06:46 06:46 RBC 3.21 L (3.80-5.40) m/uL Hgb 10.9 L (11.4-16.0) gm/dL MCV 106.8 H (80.0-100.0) fL Plt Count 141 L (150-450) k/uL PT 18.1 H (9.0-12.0) sec INR 1.8 H (<1.2) Microbiology - Last 24 Hours (Table) 04/19/18 17:45 Gram Stain - Preliminary Pleural Fluid Body Fluid Culture - Preliminary 04/19/18 17:45 Acid Fast Bacilli Culture - Preliminary Pleural Fluid Assessment and Plan Assessment: Impression: #1 Dyspnea secondary to a large right-sided pleural effusion and small left pleural effusion. Status post right-sided thoracentesis on 04/19/2018 with 2.7 L removed. Fluid analysis pending. #2 Abdominal distention with moderate peritoneal fluid secondary to cirrhosis. #3 Alcoholic cirrhosis. #4 Hypercoagulable state secondary to above. Current INR 2.0. #5 Elevated AST secondary to above. #6 Poor coping mechanisms secondary to the loss of her . Plan: The patient was seen and evaluated by Dr. Ramey. Thoracentesis performed yesterday. The patient may benefit from a paracentesis as well. Continue diuretics. Electrolyte replacement. She is counseled regarding the importance of complete alcohol cessation. We will continue to follow and make further recommendations based on her clinical status. I, the cosigning physician, performed a history & physical examination of the patient. Lungs sounds diminished right greater than left. Maintaining good O2 saturations in the 90s on room air. I discussed the assessment and plan of care with my nurse practitioner, Maxine Chacon. I attest to the above note as dictated by her.
[2018-04-20] MEDS ORDERED: PHYTONADIONE ORAL 5 MG/5 ML ORAL.SYRG PO STA (15:00)
[2018-04-21 07:38] LABS: INR 1.7 (<1.2); Prothrombin Time 17.3 sec (9.0-12.0)
[2018-04-21 07:40] LABS: Basophils # (A) 0.1 k/uL (0-0.2); Basophils % (A) 1 %; Eosinophils # (A) 0.4 k/uL (0-0.7); Eosinophils % (A) 4 %; HCT 34.2 % (34.0-46.0); HGB 10.7 gm/dL (11.4-16.0); Lymphocytes # (A) 1.6 k/uL (1.0-4.8); Lymphocytes % (A) 18 %; MCH 33.4 pg (25.0-35.0); MCHC 31.3 g/dL (31.0-37.0); MCV 106.9 fL (80.0-100.0); Macrocytosis Moderate; Mean Platelet Volume 7.2; Monocytes # (A) 0.6 k/uL (0-1.0); Monocytes % (A) 7 %; Neutrophils % (A) 69 %; Platelet Count 153 k/uL (150-450); RDW 13.9 % (11.5-15.5); WBC 8.7 k/uL (3.8-10.6)
[2018-04-21] MEDS: FUROSEMIDE 40 MG TAB PO SCH (08:13)
[2018-04-21] MEDS: SPIRONOLACTONE 25 MG TAB PO SCH (08:14)
[2018-04-21] MEDS: POTASSIUM CHLORIDE ER 10 MEQ TAB.ER.PRT PO SCH (08:14)
--- NOTE | 2018-04-21 11:53 | P.PN ---
Subjective Progress Note Date: 04/21/18 Principal diagnosis: Large right pleural effusion This is a very pleasant 52-year-old female patient who follows with Dr. Bridges as her primary care physician. She has a history of alcoholic cirrhosis. This is a fairly recent diagnosis. She has been seen by Dr. Orozco. She admits to significant alcohol use due to her poor coping mechanism after the loss of her . No other significant history. She is a nonsmoker. She presented here to the emergency room yesterday with having increasing shortness of breath. Progressive dyspnea on exertion. She had been seen by her PCP earlier was told she had fluid in her left lung and if it were to get worse to come to the hospital. Her chest x-ray here revealed significant right- sided pleural effusion with minimal left-sided pleural effusion. Ultrasound of the chest revealed a 9.3 cm pocket on the right. 1.9 cm on the left. Abdominal ultrasound revealed significant peritoneal fluid as well. White count 9.4. Hemoglobin 11.1. MCV 106.5. Platelets 149,000. INR 2.0. Creatinine 0.51. AST 186. Albumin 2.3. Total protein 6.2. Hepatitis screen on 03/28/2018 was negative. She is seen today in consultation on the regular medical floor. She is awake and alert in no acute distress. She is dyspneic with minimal exertion. Maintaining O2 saturations in the 90s on room air. She is jaundice, sclera icteric. Currently on Lasix 80 mg by mouth daily along with Aldactone 50 mg daily. The patient is seen today 04/20/2017 in follow-up on the regular medical floor. She did undergo a right-sided thoracentesis by Dr. Weber yesterday with 2700 ML's of serosanguineous fluid returned. Fluid analysis pending. She is breathing much easier today. Maintaining good O2 saturations in the 90s on room air. She still has some abdominal discomfort. She's been seen by GI services who request interventional radiology to perform a paracentesis. INR 1.8 today. She remains on Lasix 80 mg daily along with Aldactone. The patient is seen today August [id number] in follow-up on the regular medical floor. She is awake and alert in no acute distress. She is breathing about the same today as compared to yesterday. Currently requiring 4 L/m per nasal cannula to maintain O2 saturations in the 90s, mainly with drops and saturations during the night. She's afebrile. Paracentesis is pending today per interventional radiology. INR 1.7. White count 8.7. Hemoglobin and 0.7. MCV 106.9. Pleural fluid cultures are pending. She remains on Lasix 80 mg and Aldactone 50 mg daily. Objective - Vital Signs Vital signs: Vital Signs Temp 98.1 F 04/21/18 04:29 Pulse 98 04/21/18 04:29 Resp 16 04/21/18 04:29 BP 94/55 04/21/18 04:29 Pulse Ox 91 L 04/21/18 04:29 Intake & Output 04/20/18 04/21/18 04/21/18 18:59 06:59 18:59 Intake Total 100 Balance 100 Intake: Oral 100 Other: # Voids 2 2 - Exam GENERAL EXAM: Alert, fairly comfortable in no apparent distress. On 4 L nasal cannula.. HEAD: Normocephalic. EYES: Normal reaction of pupils, equal size. Iicteric sclera. NOSE: Clear with pink turbinates. THROAT: No erythema or exudates. NECK: No masses, no JVD. CHEST: No chest wall deformity. LUNGS: Equal air entry with crackles in the posterior bases right greater than left. CVS: S1 and S2 normal with no audible murmur, regular rhythm. ABDOMEN: Distended. Positive fluid wave, normal bowel sounds, no guarding or rigidity. SPINE: No scoliosis or deformity SKIN: No rashes CENTRAL NERVOUS SYSTEM: No focal deficits, tone is normal in all 4 extremities. EXTREMITIES: There is trace peripheral edema. No clubbing, no cyanosis. Peripheral pulses are intact. - Labs CBC & Chem 7: 04/21/18 06:57 04/19/18 07:22 Labs: Abnormal Lab Results - Last 24 Hours (Table) 04/21/18 04/21/18 Range/Units 06:57 06:57 RBC 3.20 L (3.80-5.40) m/uL Hgb 10.7 L (11.4-16.0) gm/dL MCV 106.9 H (80.0-100.0) fL PT 17.3 H (9.0-12.0) sec INR 1.7 H (<1.2) Microbiology - Last 24 Hours (Table) 04/19/18 17:45 Acid Fast Bacilli Smear - Final Pleural Fluid Acid Fast Bacilli Culture - Preliminary 04/19/18 17:45 Gram Stain - Preliminary Pleural Fluid Body Fluid Culture - Preliminary Assessment and Plan Assessment: Impression: #1 Dyspnea secondary to a large right-sided pleural effusion and small left pleural effusion. Status post right-sided thoracentesis on 04/19/2018 with 2.7 L removed. Fluid analysis pending. #2 Abdominal distention with moderate peritoneal fluid secondary to cirrhosis. Plan is for paracentesis today. #3 Alcoholic cirrhosis. #4 Hypercoagulable state secondary to above. Current INR 1.7. #5 Elevated AST secondary to above. #6 Poor coping mechanisms secondary to the loss of her . Plan: The patient was seen and evaluated by Dr. Ramey. She is still requiring 4 L/m per nasal cannula to maintain O2 saturations in the 90s. No worsening shortness of breath. The plan is for a paracentesis with interventional radiology today at the bedside. Continue diuretics. Electrolyte replacement. We will continue to follow and make further recommendations based on her clinical status. I, the cosigning physician, performed a history & physical examination of the patient. Lungs sounds diminished right greater than left. Maintaining good O2 saturations in the 90s on 4 L/m per nasal cannula. I discussed the assessment and plan of care with my nurse practitioner, Maxine Chacon. I attest to the above note as dictated by her.
[2018-04-21] MEDS: POTASSIUM CHLORIDE ER 20 MEQ TAB.ER PO SCH (23:56)
[2018-04-22 07:31] LABS: Anion Gap 4 mmol/L; Blood Urea Nitrogen 8 mg/dL (7-17); Calcium 8.1 mg/dL (8.4-10.2); Carbon Dioxide 34 mmol/L (22-30); Chloride 99 mmol/L (98-107); Glucose 120 mg/dL (74-99); Magnesium 1.8 mg/dL (1.6-2.3); Potassium 3.3 mmol/L (3.5-5.1); Sodium 137 mmol/L (137-145)
[2018-04-22] MEDS: SPIRONOLACTONE 25 MG TAB PO SCH (07:55)
[2018-04-22] MEDS: FUROSEMIDE 40 MG TAB PO SCH (07:56)
--- NOTE | 2018-04-22 08:44 | US ---
EXAMINATION TYPE: US paracentesis abd w/image DATE OF EXAM: 04/21/2018 COMPARISON: NONE HISTORY: Ascites. PROCEDURE: Maximal barrier technique was utilized. The skin overlying a suitable pocket of fluid was localized with ultrasound and the overlying skin was prepped and draped. Ultrasound was utilized with sterile technique. Lidocaine was used for local anesthesia and a skin chaparrita made with a scalpel. Catheter was advanced under direct ultrasound guidance into a suitable pocket of fluid and approximately 5 liters of serous fluid were removed. Catheter was withdrawn and hemostasis achieved. There is no immediate complication; the patient is discharged in stable condition. IMPRESSION: STATUS POST ULTRASOUND GUIDED PARACENTESIS FOR PALLIATION OF ASCITES. THIS PROCEDURE WA S PERFORMED BY THE UNDERSIGNED.
[2018-04-22 09:46] LABS: HCT 38.5 % (34.0-46.0); HGB 11.9 gm/dL (11.4-16.0); MCH 33.6 pg (25.0-35.0); MCV 108.3 fL (80.0-100.0); Macrocytosis Marked; Mean Platelet Volume 7.5; Platelet Count 168 k/uL (150-450); RBC 3.55 m/uL (3.80-5.40); RDW 13.8 % (11.5-15.5); WBC 9.8 k/uL (3.8-10.6)
--- NOTE | 2018-04-22 09:54 | XR ---
EXAMINATION TYPE: XR chest 1V portable DATE OF EXAM: 04/22/2018 COMPARISON: Prior chest 04/19/2017 HISTORY: Pleural effusion, cough TECHNIQUE: Single frontal view of the chest is obtained. FINDINGS: Findings are similar to prior exam. IMPRESSION: Pleural effusions right greater than left. There are overlying cardiac leads.
[2018-04-22 10:06] LABS: INR 1.8 (<1.2); Prothrombin Time 17.6 sec (9.0-12.0)
[2018-04-22 10:07] LABS: Anion Gap 3 mmol/L; Blood Urea Nitrogen 8 mg/dL (7-17); Calcium 8.1 mg/dL (8.4-10.2); Carbon Dioxide 32 mmol/L (22-30); Chloride 100 mmol/L (98-107); Glucose 137 mg/dL (74-99); Potassium 3.7 mmol/L (3.5-5.1); Sodium 135 mmol/L (137-145)
--- NOTE | 2018-04-22 11:16 | P.PN ---
Subjective Progress Note Date: 04/22/18 Principal diagnosis: Ascites and pleural effusion This is a very pleasant 52-year-old female patient who follows with Dr. Bridges as her primary care physician. She has a history of alcoholic cirrhosis. This is a fairly recent diagnosis. She has been seen by Dr. Orozco. She admits to significant alcohol use due to her poor coping mechanism after the loss of her . No other significant history. She is a nonsmoker. She presented here to the emergency room yesterday with having increasing shortness of breath. Progressive dyspnea on exertion. She had been seen by her PCP earlier was told she had fluid in her left lung and if it were to get worse to come to the hospital. Her chest x-ray here revealed significant right- sided pleural effusion with minimal left-sided pleural effusion. Ultrasound of the chest revealed a 9.3 cm pocket on the right. 1.9 cm on the left. Abdominal ultrasound revealed significant peritoneal fluid as well. White count 9.4. Hemoglobin 11.1. MCV 106.5. Platelets 149,000. INR 2.0. Creatinine 0.51. AST 186. Albumin 2.3. Total protein 6.2. Hepatitis screen on 03/28/2018 was negative. She is seen today in consultation on the regular medical floor. She is awake and alert in no acute distress. She is dyspneic with minimal exertion. Maintaining O2 saturations in the 90s on room air. She is jaundice, sclera icteric. Currently on Lasix 80 mg by mouth daily along with Aldactone 50 mg daily. The patient is seen today 04/20/2018 in follow-up on the regular medical floor. She did undergo a right-sided thoracentesis by Dr. Weber yesterday with 2700 ML's of serosanguineous fluid returned. Fluid analysis pending. She is breathing much easier today. Maintaining good O2 saturations in the 90s on room air. She still has some abdominal discomfort. She's been seen by GI services who request interventional radiology to perform a paracentesis. INR 1.8 today. She remains on Lasix 80 mg daily along with Aldactone. The patient is seen today 04/21 in follow-up on the regular medical floor. She is awake and alert in no acute distress. She is breathing about the same today as compared to yesterday. Currently requiring 4 L/m per nasal cannula to maintain O2 saturations in the 90s, mainly with drops and saturations during the night. She's afebrile. Paracentesis is pending today per interventional radiology. INR 1.7. White count 8.7. Hemoglobin and 0.7. MCV 106.9. Pleural fluid cultures are pending. She remains on Lasix 80 mg and Aldactone 50 mg daily. Patient was reevaluated today on 04/22/2017, patient is doing fairly well, breathing easier, she had right-sided thoracentesis and she had paracentesis yesterday. She had over 5 L of fluid drained from her abdomen. Remains on Aldactone, which is also on Lasix, feeling much better, breathing easier, however her chest x-ray today continues to show good sized right-sided pleural effusion, patient may actually benefit from another right-sided thoracentesis. I will recommend an ultrasound of the chest to be done in the morning, and if it does confirm significant effusion, may have to be drained again by Dr. Anaya , or by interventional radiology. Her INR was 1.7 yesterday, it is 1.8 today. Objective - Vital Signs Vital signs: Vital Signs Temp 98.2 F 04/22/18 05:00 Pulse 97 04/22/18 05:00 Resp 16 04/22/18 05:00 BP 105/52 04/22/18 05:00 Pulse Ox 93 L 04/22/18 05:00 Intake & Output 04/21/18 04/22/18 04/22/18 18:59 06:59 18:59 Intake Total 150 Balance 150 Intake: Oral 150 Other: Voiding Method Toilet # Voids 1 - Exam GENERAL EXAM: Alert, fairly comfortable in no apparent distress. Room air HEENT: PERRLA, EOMI, positive icterus, no neck masses, no JVD, no stridor, no carotid bruits. CHEST: No chest wall deformity. LUNGS: Diminished breath sounds at the right base, some dullness noted. CVS: S1 and S2 normal with no audible murmur, regular rhythm. ABDOMEN: Obese, soft, nontender, suspected residual ascites. SPINE: No scoliosis or deformity SKIN: No rashes CENTRAL NERVOUS SYSTEM: No focal deficits, tone is normal in all 4 extremities. EXTREMITIES: There is trace peripheral edema. No clubbing, no cyanosis. Peripheral pulses are intact. - Labs CBC & Chem 7: 04/22/18 09:05 04/22/18 09:05 Labs: Abnormal Lab Results - Last 24 Hours (Table) 04/21/18 04/22/18 04/22/18 Range/Units 06:57 09:05 09:05 RBC 3.55 L (3.80-5.40) m/uL MCV 108.3 H (80.0-100.0) fL PT 17.6 H (9.0-12.0) sec INR 1.8 H (<1.2) Sodium (137-145) mmol/L Potassium 3.3 L (3.5-5.1) mmol/L Carbon Dioxide 34 H (22-30) mmol/L Creatinine (0.52-1.04) mg/dL Glucose 120 H (74-99) mg/dL Calcium 8.1 L (8.4-10.2) mg/dL 04/22/18 Range/Units 09:05 RBC (3.80-5.40) m/uL MCV (80.0-100.0) fL PT (9.0-12.0) sec INR (<1.2) Sodium 135 L (137-145) mmol/L Potassium (3.5-5.1) mmol/L Carbon Dioxide 32 H (22-30) mmol/L Creatinine 0.51 L (0.52-1.04) mg/dL Glucose 137 H (74-99) mg/dL Calcium 8.1 L (8.4-10.2) mg/dL Assessment and Plan Assessment: #1 Dyspnea secondary to a large right-sided pleural effusion and small left pleural effusion. Status post right-sided thoracentesis on 04/19/2018 with 2.7 L removed. Fluid atelectasis is consistent with transudate. Patient seems to be reaccumulating fluid on the right pleural space, we'll arrange for ultrasound tomorrow on possible thoracentesis tomorrow assuming the ultrasound shows significant or good sized pleural effusion. #2 Abdominal distention with moderate peritoneal fluid secondary to cirrhosis. Plan is for paracentesis today. #3 Alcoholic cirrhosis. #4 Hypercoagulable state secondary to above. INR today is 1.8 #5 Elevated AST secondary to above. #6 Poor coping mechanisms secondary to the loss of her . Recommendation: Arrange for ultrasound of the chest, hold on discharge planning for today, consider thoracentesis depending on the size of the pleural effusion based on ultrasound tomorrow. If the pleural effusion is small, consider discharge and follow-up on outpatient basis. Time with Patient: Less than 30
[2018-04-22 13:11] LABS: Eosinophils # (M) 0.69 k/uL (0-0.7); Lymphocytes # (M) 2.65 k/uL (1.0-4.8); Monocytes # (M) 0.29 k/uL (0-1.0); Neutrophils # (M) 5.98 k/uL (1.3-7.7); Neutrophils % (M) 61 %; Nucleated Red Blood Cells 0 /100 WBC (0-0); Total Cells Counted 100
[2018-04-22 13:12] LABS: Poikilocytosis (M) Present
[2018-04-22 15:08] LABS: Appearance,BF Hazy; Color,BF Yellow; Nucleated Cells, Body Fluid 30 /uL; RBC, Body Fluid 515 /uL
[2018-04-22 15:10] LABS: Mononuclear WBC,Body Fluid 93 %; Polynuclear WBC,Body Fluid 7 %; Total Cells Counted,Body Fluid 100
[2018-04-22] MEDS ORDERED: VANCOMYCIN 1,500 MG in SODIUM CHLORIDE 0.9% 250 ML IVPB SCH (23:00)
[2018-04-23] MEDS ORDERED: VANCOMYCIN 1,250 MG in SODIUM CHLORIDE 0.9% 250 ML IVPB SCH ×2
--- NOTE | 2018-04-23 00:40 | P.PN ---
Subjective Progress Note Date: 04/19/18 Principal diagnosis: Large right pleural effusion Ascites Alcohol at liver disease Patient is a 52-year-old female with a known history of recently diagnosed alcoholic liver cirrhosis about a month back, came to ER with complaints of worsening shortness of breath for the past 2 weeks. Patient also having abdominal distention. No complaints of fever or chills. No complaints of abdominal pain. No nausea vomiting or diarrhea. Patient says that she is having yellowish discoloration. Patient was seen by her primary care physician and had chest x-ray which showed fluid in her left lung and was recommended to go to the hospital for evaluation. Denied any cough or sputum production. Patient denied any lightheadedness, dizziness syncopal episode. Patient states she's got increased edema to her feet and her abdomen has also been distended but she believes that is slightly improved. Patient follows with GI clinic, Dr. Orozco. Chest x-ray showed large right-sided pleural effusion and small left pleural effusion. Ultrasound of the abdomen showed moderate ascites. INR 1.9 and potassium 2.9 Albumin 3.1 Bilirubin 10.6 04/20/2018 Patient is still having short of breath. Pulmonary is planning for thoracentesis today. No complaints of of fever or chills. No abdominal pain. No nausea vomiting. No commerce of chest pain. Continued on Lasix and spironolactone. Current medications reviewed. Objective - Vital Signs Vital signs: Vital Signs Temp 98.1 F 04/19/18 13:20 Pulse 107 H 04/19/18 13:20 Resp 16 04/19/18 13:20 BP 118/58 04/19/18 13:20 Pulse Ox 95 04/19/18 13:20 Intake & Output 04/18/18 04/19/18 04/19/18 18:59 06:59 18:59 Intake Total 0 Balance 1920 Weight 104.78 kg Intake: Intake, IV Titration 300 Amount Sodium Chloride 0.9% 1, 300 000 ml @ 75 mls/hr IV . [id number] ONE Rx#:[id number] Oral 1620 Other: # Voids 2 3 - Exam PHYSICAL EXAMINATION: Patient is lying in the bed comfortably, no acute distress, awake alert and oriented.. HEENT: Normocephalic. Neck is supple. Pupils reactive. icteric. Nostrils clear. Oral cavity is moist. Ears reveal no drainage. Neck reveals no JVD, carotid bruits, or thyromegaly. CHEST EXAMINATION: Trachea is central. Symmetrical expansion. Left basilar crackles and right lower lung diminished breath sounds. No wheezing. CARDIAC: Normal S1, S2 with no gallops. No murmurs ABDOMEN: Soft. Bowel sounds normal. No organomegaly. No abdominal bruits. Extremities: reveal no edema. No clubbing or cyanosis Neurologically awake, alert, oriented x3 with well-coordinated movements. No focal deficits noted Skin: No rash or skin lesions. Psychiatric: Coperative. Nonsuicidal Musculoskeletal: No joint swelling or deformity. Normal range of motion. - Labs CBC & Chem 7: 04/22/18 09:05 04/22/18 09:05 Labs: Abnormal Lab Results - Last 24 Hours (Table) 04/19/18 04/19/18 04/19/18 Range/Units 07:22 07:22 07:22 RBC 3.28 L (3.80-5.40) m/uL Hgb 11.1 L (11.4-16.0) gm/dL MCV 106.5 H (80.0-100.0) fL Plt Count 149 L (150-450) k/uL PT 19.9 H (9.0-12.0) sec INR 2.0 H (<1.2) Potassium 3.4 L (3.5-5.1) mmol/L Carbon Dioxide 33 H (22-30) mmol/L Creatinine 0.51 L (0.52-1.04) mg/dL Calcium 7.9 L (8.4-10.2) mg/dL Total Bilirubin 8.4 H (0.2-1.3) mg/dL AST 86 H (14-36) U/L Total Protein 6.2 L (6.3-8.2) g/dL Albumin 2.3 L (3.5-5.0) g/dL Assessment and Plan Assessment: Shortness of breath secondary to large right pleural effusion and abdominal distention with ascites Moderate ascites Alcoholic liver cirrhosis Coagulopathy secondary to liver disease Alcohol abuse Macrocytosis Hyperbilirubinemia Hypoalbuminemia Morbid obesity BMI 36.2 Plan: Patient will be continued on Lasix and spironolactone. Pulmonary was consulted for further evaluation of pleural effusion and thoracentesis. Continue to follow closely. Further recommendations based on the clinical course. Prognosis is guarded. Time with Patient: Greater than 30
--- NOTE | 2018-04-23 00:42 | P.PN ---
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 Patient also having abdominal distention. No complaints of fever or chills. No complaints of abdominal pain. No nausea vomiting or diarrhea. Patient says that she is having yellowish discoloration. Patient was seen by her primary care physician and had chest x-ray which showed fluid in her left lung and was recommended to go to the hospital for evaluation. Denied any cough or sputum production. Patient denied any lightheadedness, dizziness syncopal episode. Patient states she's got increased edema to her feet and her abdomen has also been distended but she believes that is slightly improved. Patient follows with GI clinic, Dr. Orozco. Chest x-ray showed large right-sided pleural effusion and small left pleural effusion. Ultrasound of the abdomen showed moderate ascites. INR 1.9 and potassium 2.9 Albumin 3.1 Bilirubin 10.6 04/19/2018 Patient is still having short of breath. Pulmonary is planning for thoracentesis today. No complaints of of fever or chills. No abdominal pain. No nausea vomiting. No commerce of chest pain. Continued on Lasix and spironolactone. 04/20/2018 Patient did have right-sided thoracentesis with 2.7 L fluid removal. Fluid analysis pending at this time. Otherwise due to sepsis slightly improved. Abdominal still distended and is planning for paracentesis by IR. Continued on Lasix and Aldactone. Pulmonary and GI is following. Current medications reviewed. Objective - Vital Signs Vital signs: Vital Signs Temp 98.1 F 04/20/18 12:01 Pulse 99 04/20/18 12:01 Resp 17 04/20/18 12:01 BP 138/77 04/20/18 12:01 Pulse Ox 94 L 04/20/18 05:00 Intake & Output 04/19/18 04/20/18 04/20/18 18:59 06:59 18:59 Intake Total 578 590 Balance 578 590 Intake: Oral 240 590 Blood Product 338 0 Ffp 24 Cpd Unit 338 [id number] Ffp 24 Cpd Unit 0 0 [id number] Other: # Voids 3 2 2 - Exam PHYSICAL EXAMINATION: Patient is lying in the bed comfortably, no acute distress, awake alert and oriented.. HEENT: Normocephalic. Neck is supple. Pupils reactive. icteric. Nostrils clear. Oral cavity is moist. Ears reveal no drainage. Neck reveals no JVD, carotid bruits, or thyromegaly. CHEST EXAMINATION: Trachea is central. Symmetrical expansion. Left basilar crackles and right lower lung diminished breath sounds. No wheezing. CARDIAC: Normal S1, S2 with no gallops. No murmurs ABDOMEN: Soft. Bowel sounds normal. No organomegaly. No abdominal bruits. Extremities: reveal no edema. No clubbing or cyanosis Neurologically awake, alert, oriented x3 with well-coordinated movements. No focal deficits noted Skin: No rash or skin lesions. Psychiatric: Coperative. Nonsuicidal Musculoskeletal: No joint swelling or deformity. Normal range of motion. - Labs CBC & Chem 7: 04/22/18 09:05 04/22/18 09:05 Labs: Abnormal Lab Results - Last 24 Hours (Table) 04/20/18 04/20/18 Range/Units 06:46 06:46 RBC 3.21 L (3.80-5.40) m/uL Hgb 10.9 L (11.4-16.0) gm/dL MCV 106.8 H (80.0-100.0) fL Plt Count 141 L (150-450) k/uL PT 18.1 H (9.0-12.0) sec INR 1.8 H (<1.2) Microbiology - Last 24 Hours (Table) 04/19/18 17:45 Gram Stain - Preliminary Pleural Fluid Body Fluid Culture - Preliminary 04/19/18 17:45 Acid Fast Bacilli Culture - Preliminary Pleural Fluid Assessment and Plan Assessment: Shortness of breath secondary to large right pleural effusion and abdominal distention with ascites Moderate ascites Alcoholic liver cirrhosis Coagulopathy secondary to liver disease Alcohol abuse Macrocytosis Hyperbilirubinemia Hypoalbuminemia Morbid obesity BMI 36.2 Plan: Patient will be continued on Lasix and spironolactone. Pulmonary was consulted for further evaluation of pleural effusion and thoracentesis. Continue to follow closely. Further recommendations based on the clinical course. Prognosis is guarded.
--- NOTE | 2018-04-23 00:44 | P.PN ---
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 Patient also having abdominal distention. No complaints of fever or chills. No complaints of abdominal pain. No nausea vomiting or diarrhea. Patient says that she is having yellowish discoloration. Patient was seen by her primary care physician and had chest x-ray which showed fluid in her left lung and was recommended to go to the hospital for evaluation. Denied any cough or sputum production. Patient denied any lightheadedness, dizziness syncopal episode. Patient states she's got increased edema to her feet and her abdomen has also been distended but she believes that is slightly improved. Patient follows with GI clinic, Dr. Orozco. Chest x-ray showed large right-sided pleural effusion and small left pleural effusion. Ultrasound of the abdomen showed moderate ascites. INR 1.9 and potassium 2.9 Albumin 3.1 Bilirubin 10.6 04/19/2018 Patient is still having short of breath. Pulmonary is planning for thoracentesis today. No complaints of of fever or chills. No abdominal pain. No nausea vomiting. No commerce of chest pain. Continued on Lasix and spironolactone. 04/20/2018 Patient did have right-sided thoracentesis with 2.7 L fluid removal. Fluid analysis pending at this time. Otherwise due to sepsis slightly improved. Abdominal still distended and is planning for paracentesis by IR. Continued on Lasix and Aldactone. Pulmonary and GI is following. 04/21/2018 Patient is still having shortness of breath and abdominal distention. Patient is scheduled for paracentesis by IR today. INR was 1.7. Fluid cultures are pending otherwise. No fever no chills. No abdominal pain. No nausea vomiting or diarrhea. Patient continues to be on Lasix and Aldactone. Leg swelling is much improved otherwise . Current medications reviewed. Objective - Vital Signs Vital signs: Vital Signs Temp 98.2 F 04/22/18 05:00 Pulse 97 04/22/18 05:00 Resp 16 04/22/18 05:00 BP 105/52 04/22/18 05:00 Pulse Ox 93 L 04/22/18 05:00 Intake & Output 04/21/18 04/22/18 04/22/18 18:59 06:59 18:59 Intake Total 150 1150 Balance 150 1150 Intake: Oral 150 1150 Other: Voiding Method Toilet # Voids 1 3 - Exam PHYSICAL EXAMINATION: Patient is lying in the bed comfortably, no acute distress, awake alert and oriented.. HEENT: Normocephalic. Neck is supple. Pupils reactive. icteric. Nostrils clear. Oral cavity is moist. Ears reveal no drainage. Neck reveals no JVD, carotid bruits, or thyromegaly. CHEST EXAMINATION: Trachea is central. Symmetrical expansion. Bibasilar diminished air entry.. No wheezing. CARDIAC: Normal S1, S2 with no gallops. No murmurs ABDOMEN: Soft. Distended. Bowel sounds normal. No organomegaly. No abdominal bruits. Extremities: reveal no edema. No clubbing or cyanosis Neurologically awake, alert, oriented x3 with well-coordinated movements. No focal deficits noted Skin: No rash or skin lesions. Psychiatric: Coperative. Nonsuicidal Musculoskeletal: No joint swelling or deformity. Normal range of motion. - Labs CBC & Chem 7: 04/22/18 09:05 04/22/18 09:05 Labs: Abnormal Lab Results - Last 24 Hours (Table) 04/21/18 04/22/18 04/22/18 Range/Units 06:57 09:05 09:05 RBC 3.55 L (3.80-5.40) m/uL MCV 108.3 H (80.0-100.0) fL PT 17.6 H (9.0-12.0) sec INR 1.8 H (<1.2) Sodium (137-145) mmol/L Potassium 3.3 L (3.5-5.1) mmol/L Carbon Dioxide 34 H (22-30) mmol/L Creatinine (0.52-1.04) mg/dL Glucose 120 H (74-99) mg/dL Calcium 8.1 L (8.4-10.2) mg/dL 04/22/18 Range/Units 09:05 RBC (3.80-5.40) m/uL MCV (80.0-100.0) fL PT (9.0-12.0) sec INR (<1.2) Sodium 135 L (137-145) mmol/L Potassium (3.5-5.1) mmol/L Carbon Dioxide 32 H (22-30) mmol/L Creatinine 0.51 L (0.52-1.04) mg/dL Glucose 137 H (74-99) mg/dL Calcium 8.1 L (8.4-10.2) mg/dL Microbiology - Last 24 Hours (Table) 04/21/18 11:50 Fungal Culture - Preliminary Peritoneal Fluid 04/21/18 11:50 Body Fluid Culture - Preliminary Peritoneal Fluid 04/21/18 11:50 Acid Fast Bacilli Culture - Preliminary Peritoneal Fluid Assessment and Plan Assessment: Shortness of breath secondary to large right pleural effusion and abdominal distention with ascites Moderate ascites Alcoholic liver cirrhosis Coagulopathy secondary to liver disease Alcohol abuse Macrocytosis Hyperbilirubinemia Hypoalbuminemia Morbid obesity BMI 36.2 Plan: Patient will be continued on Lasix and spironolactone. Chest post thoracentesis and paracentesis. Follow-up urinalysis and culture reports. Pulmonary and GI is following. Continue to follow closely. Further recommendations based on the clinical course. Prognosis is guarded.
--- NOTE | 2018-04-23 00:47 | P.PN ---
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 Patient also having abdominal distention. No complaints of fever or chills. No complaints of abdominal pain. No nausea vomiting or diarrhea. Patient says that she is having yellowish discoloration. Patient was seen by her primary care physician and had chest x-ray which showed fluid in her left lung and was recommended to go to the hospital for evaluation. Denied any cough or sputum production. Patient denied any lightheadedness, dizziness syncopal episode. Patient states she's got increased edema to her feet and her abdomen has also been distended but she believes that is slightly improved. Patient follows with GI clinic, Dr. Orozco. Chest x-ray showed large right-sided pleural effusion and small left pleural effusion. Ultrasound of the abdomen showed moderate ascites. INR 1.9 and potassium 2.9 Albumin 3.1 Bilirubin 10.6 04/19/2018 Patient is still having short of breath. Pulmonary is planning for thoracentesis today. No complaints of of fever or chills. No abdominal pain. No nausea vomiting. No commerce of chest pain. Continued on Lasix and spironolactone. 04/20/2018 Patient did have right-sided thoracentesis with 2.7 L fluid removal. Fluid analysis pending at this time. Otherwise due to sepsis slightly improved. Abdominal still distended and is planning for paracentesis by IR. Continued on Lasix and Aldactone. Pulmonary and GI is following. 04/21/2018 Patient is still having shortness of breath and abdominal distention. Patient is scheduled for paracentesis by IR today. INR was 1.7. Fluid cultures are pending otherwise. No fever no chills. No abdominal pain. No nausea vomiting or diarrhea. Patient continues to be on Lasix and Aldactone. Leg swelling is much improved otherwise 04/22/2018 Patient says that her breathing is better today. Able to ablate to the bathroom. Patient did have paracentesis done yesterday with 5 L fluid removal. Fluid sent for analysis. Currently being continued on Lasix and spironolactone. Leg swelling is resolved. Chest x-ray showed right-sided pleural effusion. Pulmonary is recommending another right-sided thoracentesis, ultrasound-guided. Pulmonary and GI is following. INR is 1.8 today. Current medications reviewed. Objective - Vital Signs Vital signs: Vital Signs Temp 98.3 F 04/22/18 21:00 Pulse 103 H 04/22/18 21:00 Resp 16 04/22/18 21:00 BP 116/67 04/22/18 21:00 Pulse Ox 94 L 04/22/18 21:00 Intake & Output 04/22/18 04/22/18 04/23/18 06:59 18:59 06:59 Intake Total 150 1150 590 Balance 150 1150 590 Intake: Oral 150 1150 590 Other: Voiding Method Toilet # Voids 1 3 1 - Exam PHYSICAL EXAMINATION: Patient is lying in the bed comfortably, no acute distress, awake alert and oriented.. HEENT: Normocephalic. Neck is supple. Pupils reactive. icteric. Nostrils clear. Oral cavity is moist. Ears reveal no drainage. Neck reveals no JVD, carotid bruits, or thyromegaly. CHEST EXAMINATION: Trachea is central. Symmetrical expansion. Bibasilar diminished air entry.. No wheezing. CARDIAC: Normal S1, S2 with no gallops. No murmurs ABDOMEN: Soft. Distended. Bowel sounds normal. No organomegaly. No abdominal bruits. Extremities: reveal no edema. No clubbing or cyanosis Neurologically awake, alert, oriented x3 with well-coordinated movements. No focal deficits noted Skin: No rash or skin lesions. Psychiatric: Coperative. Nonsuicidal Musculoskeletal: No joint swelling or deformity. Normal range of motion. - Labs CBC & Chem 7: 04/22/18 09:05 04/22/18 09:05 Labs: Abnormal Lab Results - Last 24 Hours (Table) 04/21/18 04/22/18 04/22/18 Range/Units 06:57 09:05 09:05 RBC 3.55 L (3.80-5.40) m/uL MCV 108.3 H (80.0-100.0) fL PT 17.6 H (9.0-12.0) sec INR 1.8 H (<1.2) Sodium (137-145) mmol/L Potassium 3.3 L (3.5-5.1) mmol/L Carbon Dioxide 34 H (22-30) mmol/L Creatinine (0.52-1.04) mg/dL Glucose 120 H (74-99) mg/dL Calcium 8.1 L (8.4-10.2) mg/dL 04/22/18 Range/Units 09:05 RBC (3.80-5.40) m/uL MCV (80.0-100.0) fL PT (9.0-12.0) sec INR (<1.2) Sodium 135 L (137-145) mmol/L Potassium (3.5-5.1) mmol/L Carbon Dioxide 32 H (22-30) mmol/L Creatinine 0.51 L (0.52-1.04) mg/dL Glucose 137 H (74-99) mg/dL Calcium 8.1 L (8.4-10.2) mg/dL Microbiology - Last 24 Hours (Table) 04/19/18 17:45 Gram Stain - Preliminary Pleural Fluid Body Fluid Culture - Preliminary Presumptive MRSA 04/21/18 11:50 Gram Stain - Preliminary Peritoneal Fluid Body Fluid Culture - Preliminary 04/21/18 11:50 Acid Fast Bacilli Culture - Preliminary Peritoneal Fluid 04/21/18 11:50 Fungal Culture - Preliminary Peritoneal Fluid Assessment and Plan Assessment: Shortness of breath secondary to large right pleural effusion and abdominal distention with ascites Status post thoracentesis and ultrasound-guided paracentesis. 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 status post thoracentesis and paracentesis. Follow-up urinalysis and culture reports. Pulmonary and GI is following. Continue to follow closely. Further recommendations based on the clinical course. Prognosis is guarded.
[2018-04-23] MEDS ORDERED: VANCOMYCIN IV PER PHARMACY 1 EACH MISC MISCELLANE PRN ×3 (08:17→22:56)
--- NOTE | 2018-04-23 08:55 | US ---
EXAMINATION TYPE: US chest DATE OF EXAM: 04/23/2018 COMPARISON: NONE CLINICAL HISTORY: Markings for thoracentesis by pulmonary staff. TECHNIQUE: Targeted ultrasound of the posterior lower EXAM MEASUREMENTS: Right Pleural Effusion pocket size: 2.2 cm Right skin surface to fluid distance: 2.7 cm Left Pleural Effusion pocket size: no fluid Right side marked for possible thoracentesis outside the dept. Left side NOT marked for possible thoracentesis outside the dept. Pulmonologists are able to review the images in the patient?s EMR. IMPRESSIONS: 1. Right-sided pleural effusion as noted.
[2018-04-23 09:55] LABS: Anion Gap 5 mmol/L; Blood Urea Nitrogen 8 mg/dL (7-17); Calcium 8.5 mg/dL (8.4-10.2); Carbon Dioxide 31 mmol/L (22-30); Chloride 101 mmol/L (98-107); Glucose 135 mg/dL (74-99); Potassium 3.7 mmol/L (3.5-5.1); Sodium 137 mmol/L (137-145)
[2018-04-23] MEDS: POTASSIUM CHLORIDE ER 10 MEQ TAB.ER.PRT PO SCH (11:02)
[2018-04-23] MEDS: FUROSEMIDE 40 MG TAB PO SCH (11:03)
[2018-04-23] MEDS: SPIRONOLACTONE 25 MG TAB PO SCH (11:03)
[2018-04-23] MEDS: VANCOMYCIN 1,750 MG in SODIUM CHLORIDE 0.9% 500 ML 500 ML IVPB SCH ×2 (12:15→18:15)
[2018-04-23 12:39] LABS: Total Protein, Body Fluid 1006 mg/dL
--- NOTE | 2018-04-23 15:38 | P.PN ---
Subjective Progress Note Date: 04/23/18 Principal diagnosis: Ascites and pleural effusion This is a very pleasant 52-year-old female patient who follows with Dr. Bridges as her primary care physician. She has a history of alcoholic cirrhosis. This is a fairly recent diagnosis. She has been seen by Dr. Orozco. She admits to significant alcohol use due to her poor coping mechanism after the loss of her . No other significant history. She is a nonsmoker. She presented here to the emergency room yesterday with having increasing shortness of breath. Progressive dyspnea on exertion. She had been seen by her PCP earlier was told she had fluid in her left lung and if it were to get worse to come to the hospital. Her chest x-ray here revealed significant right- sided pleural effusion with minimal left-sided pleural effusion. Ultrasound of the chest revealed a 9.3 cm pocket on the right. 1.9 cm on the left. Abdominal ultrasound revealed significant peritoneal fluid as well. White count 9.4. Hemoglobin 11.1. MCV 106.5. Platelets 149,000. INR 2.0. Creatinine 0.51. AST 186. Albumin 2.3. Total protein 6.2. Hepatitis screen on 03/28/2018 was negative. She is seen today in consultation on the regular medical floor. She is awake and alert in no acute distress. She is dyspneic with minimal exertion. Maintaining O2 saturations in the 90s on room air. She is jaundice, sclera icteric. Currently on Lasix 80 mg by mouth daily along with Aldactone 50 mg daily. The patient is seen today 04/20/2018 in follow-up on the regular medical floor. She did undergo a right-sided thoracentesis by Dr. Weber yesterday with 2700 ML's of serosanguineous fluid returned. Fluid analysis pending. She is breathing much easier today. Maintaining good O2 saturations in the 90s on room air. She still has some abdominal discomfort. She's been seen by GI services who request interventional radiology to perform a paracentesis. INR 1.8 today. She remains on Lasix 80 mg daily along with Aldactone. The patient is seen today 04/21 in follow-up on the regular medical floor. She is awake and alert in no acute distress. She is breathing about the same today as compared to yesterday. Currently requiring 4 L/m per nasal cannula to maintain O2 saturations in the 90s, mainly with drops and saturations during the night. She's afebrile. Paracentesis is pending today per interventional radiology. INR 1.7. White count 8.7. Hemoglobin and 0.7. MCV 106.9. Pleural fluid cultures are pending. She remains on Lasix 80 mg and Aldactone 50 mg daily. Patient was reevaluated today on 04/22/2017, patient is doing fairly well, breathing easier, she had right-sided thoracentesis and she had paracentesis yesterday. She had over 5 L of fluid drained from her abdomen. Remains on Aldactone, which is also on Lasix, feeling much better, breathing easier, however her chest x-ray today continues to show good sized right-sided pleural effusion, patient may actually benefit from another right-sided thoracentesis. I will recommend an ultrasound of the chest to be done in the morning, and if it does confirm significant effusion, may have to be drained again by Dr. Anaya , or by interventional radiology. Her INR was 1.7 yesterday, it is 1.8 today. On 04/23/2018 patient seen in follow-up. She is calm and comfortable, denies any distress, no dyspnea, room air pulse ox is 94%, afebrile, repeat ultrasound of the chest showed right pleural effusion pocket of 2.2 cm, with no pleural fluid pocket on the left. Lung sounds are clear, diminished at the bases. Pleural fluid culture showed methicillin-resistant staph aureus, peritoneal fluid culture is pending. She was started on IV vancomycin, pleural fluid analysis showed transudative fluid. Objective - Vital Signs Vital signs: Vital Signs Temp 98.0 F 04/23/18 11:11 Pulse 96 04/23/18 11:11 Resp 18 04/23/18 11:11 BP 118/70 04/23/18 11:11 Pulse Ox 94 L 04/23/18 11:11 Intake & Output 04/22/18 04/23/18 04/23/18 18:59 06:59 18:59 Intake Total 1150 840 Balance 1150 840 Intake: Intake, IV Titration 250 Amount Vancomycin 1,250 mg In 250 Sodium Chloride 0.9% 250 ml @ 125 mls/hr IVPB Q24H [facility] Rx#:[id number] Oral 1150 590 Other: Voiding Method Toilet Toilet # Voids 3 2 - Exam GENERAL EXAM: Alert, pleasant, 52-year-old white female comfortable in no apparent distress. HEAD: Normocephalic/atraumatic. EYES: Normal reaction of pupils, equal size. Conjunctiva pink, sclera white. NOSE: Clear with pink turbinates. THROAT: No erythema or exudates. NECK: No masses, no JVD, no thyroid enlargement, no adenopathy. CHEST: No chest wall deformity. Symmetrical expansion. LUNGS: Equal air entry with no crackles, wheeze, rhonchi or dullness. CVS: Regular rate and rhythm, normal S1 and S2, no gallops, no murmurs, no rubs ABDOMEN: Soft, nontender. No hepatosplenomegaly, normal bowel sounds, no guarding or rigidity. EXTREMITIES: No clubbing, no edema, no cyanosis, 2+ pulses and upper and lower extremities. MUSCULOSKELETAL: Muscle strength and tone normal. SPINE: No scoliosis or deformity SKIN: No rashes CENTRAL NERVOUS SYSTEM: Alert and oriented -3. No focal deficits, tone is normal in all 4 extremities. PSYCHIATRIC: Alert and oriented -3. Appropriate affect. Intact judgment and insight. - Labs CBC & Chem 7: 04/22/18 09:05 04/23/18 08:58 Labs: Abnormal Lab Results - Last 24 Hours (Table) 04/23/18 Range/Units 08:58 Carbon Dioxide 31 H (22-30) mmol/L Glucose 135 H (74-99) mg/dL Microbiology - Last 24 Hours (Table) 04/19/18 17:45 Gram Stain - Final Pleural Fluid Body Fluid Culture - Final Methicillin resist S. aureus 04/21/18 11:50 Gram Stain - Preliminary Peritoneal Fluid Body Fluid Culture - Preliminary 04/21/18 11:50 Acid Fast Bacilli Culture - Preliminary Peritoneal Fluid 04/21/18 11:50 Fungal Culture - Preliminary Peritoneal Fluid Assessment and Plan Plan: assessment #1 Dyspnea secondary to a large right-sided pleural effusion and small left pleural effusion. Status post right-sided thoracentesis on 04/19/2018 with 2.7 L removed. Fluid atelectasis is consistent with transudate. Patient seems to be reaccumulating fluid on the right pleural space, we'll arrange for ultrasound tomorrow on possible thoracentesis tomorrow assuming the ultrasound shows significant or good sized pleural effusion. Today's ultrasound of the chest showed 2.2 cm pocket on the right, and 0 cm on the left. #2. Pleural fluid sepsis, with cultures positive for methicillin-resistant staph aureus, not related to pneumonia, as the pleural fluid analysis showed transudative fluid #3 Abdominal distention with moderate peritoneal fluid secondary to cirrhosis. Plan is for paracentesis today. #4 Alcoholic cirrhosis. #5 Hypercoagulable state secondary to above. INR today is 1.8 #6 Elevated AST secondary to above. #7 Poor coping mechanisms secondary to the loss of her . Plan: Patient was started on IV vancomycin evidence of MRSA in the pleural fluid cultures, we'll consult interventional radiology for placement of PICC line for IV antibiotic infusions, ID service has been consult the, clinically patient is calm and comfortable, without any signs of respiratory distress, she is on room air, she is afebrile. Ultrasound the chest was reviewed, and showed only 2.2 cm pocket on the right, and 0 cm on the left. I performed a history & physical examination of the patient and discussed their management with my nurse practitioner, Lakeisha Harrell. I reviewed the nurse practitioner's note and agree with the documented findings and plan of care. Lung sounds are positive for diminished breath sounds at the bases. The findings and the impression was discussed with the patient. I attest to the documentation by the nurse practitioner. Time with Patient: Less than 30
--- NOTE | 2018-04-23 23:02 | P.PN ---
Subjective Patient is a 52-year-old female with a known history of recently diagnosed alcoholic liver cirrhosis about a month back, came to ER with complaints of worsening shortness of breath for the past 2 weeks. Patient also having abdominal distention. No complaints of fever or chills. No complaints of abdominal pain. No nausea vomiting or diarrhea. her chest x-ray which showed fluid in her left lung: large right-sided pleural effusion and small left pleural effusion. She is status post thoracocentesis on 04/19/2018. Also patient status post paracentesis for her ascites on 04/21/2018. GI and pulmonary teams were following the patient. Patient feels better and she was placed on Lasix, Aldactone and low-salt diet. On the discharge no chest pain, no dyspnea. No coughing. Less abdominal distention and no pain. pt is been followed by pulmonary and GI teams and both team cleared pt for discharge from their prespective however pt body fluid culture is came back positive for MRSA. pt was started on vancomycin , pharmacy to dose and called ID consult. CONSTITUTIONAL: No fever, no malaise, no fatigue. HEENT: No recent visual problems or hearing problems. Denied any sore throat. CARDIOVASCULAR: No orthopnea, PND, no palpitations, no syncope. NEUROLOGICAL: No headaches, no weakness, no numbness. HEMATOLOGICAL: Denies any bleeding or petechiae. GENITOURINARY: Denies any burning micturition, frequency, or urgency. MUSCULOSKELETAL/RHEUMATOLOGICAL: Denies any joint pain, swelling, or any muscle pain. ENDOCRINE: Denies any polyuria or polydipsia. medication : spironolactone , lasix, pepcid, heparin , vancomycin Objective - Vital Signs Vital signs: Vital Signs Temp 98.0 F 04/23/18 11:11 Pulse 96 04/23/18 11:11 Resp 18 04/23/18 11:11 BP 118/70 04/23/18 11:11 Pulse Ox 94 L 04/23/18 11:11 Intake & Output 04/23/18 04/23/18 04/24/18 06:59 18:59 06:59 Intake Total 840 250 Balance 840 250 Intake: Intake, IV Titration 250 250 Amount Vancomycin 1,250 mg In 250 250 Sodium Chloride 0.9% 250 ml @ 125 mls/hr IVPB Q24H [facility] Rx#:[id number] Oral 590 Other: Voiding Method Toilet Toilet # Voids 2 # Bowel Movements 1 - Exam Gen: patient is a AAOx3, little drowsy, no distress CVS: S1-S2, RRR, no murmur Lungs: B/L CTA, no wheezing Abdomen: soft, mild abdominal distention, no tenderness, positive bowel sounds. Extremity: no leg edema or induration - Labs CBC & Chem 7: 04/22/18 09:05 04/23/18 08:58 Labs: Abnormal Lab Results - Last 24 Hours (Table) 04/23/18 Range/Units 08:58 Carbon Dioxide 31 H (22-30) mmol/L Glucose 135 H (74-99) mg/dL Microbiology - Last 24 Hours (Table) 04/21/18 11:50 Acid Fast Bacilli Smear - Final Peritoneal Fluid Acid Fast Bacilli Culture - Preliminary 04/19/18 17:45 Gram Stain - Final Pleural Fluid Body Fluid Culture - Final Methicillin resist S. aureus 04/21/18 11:50 Gram Stain - Preliminary Peritoneal Fluid Body Fluid Culture - Preliminary Assessment and Plan Assessment: MRSA in body fluid culture Shortness of breath secondary to large right pleural effusion and abdominal distention with ascites, improving Status post thoracentesis and ultrasound-guided paracentesis. 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 And low salt diet. status post thoracentesis and paracentesis. pt was started on vancomycin pharmacy to dose and called ID consult. Pulmonary and GI is following. Continue to follow closely. Further recommendations based on the clinical course. Prognosis is guarded. dvt px : sc heparin GI px: pepcid prognosis is guarded
[2018-04-24] MEDS ORDERED: VANCOMYCIN IV PER PHARMACY 1 EACH MISC MISCELLANE PRN (00:51)
[2018-04-24] MEDS: HEPARIN SODIUM,PORCINE 5,000 UNIT/ML 1 ML VIAL SQ SCH ×3 (01:03→21:41)
[2018-04-24] MEDS: VANCOMYCIN 1,750 MG in SODIUM CHLORIDE 0.9% 500 ML 500 ML IVPB SCH ×2 (01:03→08:19)
--- NOTE | 2018-04-24 07:08 | P.PN ---
Subjective Progress Note Date: 04/23/18 Principal diagnosis: Alcoholic cirrhosis with ascites Patient reports that his she is feeling better overall, she is status post paracentesis with 5 L removed. Tolerating diet. No signs or symptoms of GI bleeding. Objective - Vital Signs Vital signs: Vital Signs Temp 99.0 F 04/23/18 21:00 Pulse 104 H 04/23/18 21:00 Resp 16 04/23/18 21:00 BP 117/58 04/23/18 21:00 Pulse Ox 92 L 04/23/18 21:00 Intake & Output 04/23/18 04/23/18 04/24/18 06:59 18:59 06:59 Intake Total 840 250 590 Balance 840 250 590 Intake: Intake, IV Titration 250 250 Amount Vancomycin 1,250 mg In 250 250 Sodium Chloride 0.9% 250 ml @ 125 mls/hr IVPB Q24H [facility] Rx#:[id number] Oral 590 590 Other: Voiding Method Toilet Toilet # Voids 2 2 # Bowel Movements 1 - Exam On physical examination, patient appears comfortable in no apparent distress. HEAD: Normocephalic, atraumatic. EYES: Mild scleral icterus. No conjunctival injection. MOUTH: No lesions, tongue midline. NECK: Trachea midline, no gross abnormalities. CHEST: Clear to auscultation with no wheezing or rhonchi appreciated. HEART: Regular rate and rhythm. ABDOMEN: Soft, obese and mild distention. Bowel sounds are positive. No organomegaly. No guarding or rigidity. EXTREMITIES: No pedal edema. SKIN: No rashes, no jaundice. NEUROLOGIC: Alert and oriented x3. No focal deficits. - Labs CBC & Chem 7: 04/22/18 09:05 04/23/18 08:58 Labs: Abnormal Lab Results - Last 24 Hours (Table) 04/23/18 Range/Units 08:58 Carbon Dioxide 31 H (22-30) mmol/L Glucose 135 H (74-99) mg/dL Microbiology - Last 24 Hours (Table) 04/21/18 11:50 Acid Fast Bacilli Smear - Final Peritoneal Fluid Acid Fast Bacilli Culture - Preliminary 04/19/18 17:45 Gram Stain - Final Pleural Fluid Body Fluid Culture - Final Methicillin resist S. aureus 04/21/18 11:50 Gram Stain - Preliminary Peritoneal Fluid Body Fluid Culture - Preliminary Assessment and Plan (1) Alcoholic cirrhosis of liver with ascites Narrative/Plan: Patient with a known history of alcoholic cirrhosis with ascites who has been followed in the outpatient setting by Dr. Orozco who presented with shortness of breath and was found to have bilateral pleural effusions. She is status post thoracentesis and paracentesis with 5 L of ascites removed. She is on home diuretic therapy and is feeling much better. Current Visit: Yes Status: Acute Code(s): K70.31 - ALCOHOLIC CIRRHOSIS OF LIVER WITH ASCITES SNOMED Code(s): 631912275 Plan: Supportive care Low-salt diet Continue diuresis with Lasix and Aldactone Alcohol abstinence Follow-up in the outpatient setting in 1-[address] Orozco of the gastroenterology service [facility] for discharge from GI perspective Thank you for allowing us dysphagia in the care of the patient patient, we will stand by, please feel free to call us back with any questions or concerns
[2018-04-24] MEDS ORDERED: VANCOMYCIN TROUGH DUE 1 EACH MISC MISCELLANE ONE (08:00)
[2018-04-24] MEDS: SPIRONOLACTONE 25 MG TAB PO SCH (08:15)
[2018-04-24] MEDS: FUROSEMIDE 40 MG TAB PO SCH (08:15)
[2018-04-24 08:20] LABS: Basophils # (A) 0.1 k/uL (0-0.2); Basophils % (A) 1 %; Eosinophils # (A) 0.4 k/uL (0-0.7); Eosinophils % (A) 3 %; HGB 11.8 gm/dL (11.4-16.0); Lymphocytes # (A) 2.1 k/uL (1.0-4.8); Lymphocytes % (A) 17 %; MCH 33.2 pg (25.0-35.0); MCHC 31.1 g/dL (31.0-37.0); Macrocytosis Moderate; Mean Platelet Volume 7.2; Monocytes # (A) 0.6 k/uL (0-1.0); Monocytes % (A) 5 %; Neutrophils # (A) 8.8 k/uL (1.3-7.7); Neutrophils % (A) 73 %; Platelet Count 153 k/uL (150-450); RBC 3.55 m/uL (3.80-5.40); RDW 14.2 % (11.5-15.5)
[2018-04-24 08:41] LABS: Anion Gap 5 mmol/L; Blood Urea Nitrogen 8 mg/dL (7-17); Calcium 7.9 mg/dL (8.4-10.2); Carbon Dioxide 28 mmol/L (22-30); Chloride 103 mmol/L (98-107); Glucose 99 mg/dL (74-99); Potassium 3.7 mmol/L (3.5-5.1); Sodium 136 mmol/L (137-145)
[2018-04-24] MEDS ORDERED: FAMOTIDINE 20 MG/2 ML VIAL IV SCH (09:00)
[2018-04-24] MEDS ORDERED: LIDOCAINE 1% INJ 10MG/ML (20 ML MDV) ONE (14:52)
[2018-04-24] MEDS ORDERED: LIDOCAINE 1% INJ 10MG/ML (20 ML MDV) SQ ONE (14:53)
--- NOTE | 2018-04-24 14:59 | P.PN ---
Subjective Progress Note Date: 04/24/18 Principal diagnosis: Ascites and pleural effusion This is a very pleasant 52-year-old female patient who follows with Dr. Bridges as her primary care physician. She has a history of alcoholic cirrhosis. This is a fairly recent diagnosis. She has been seen by Dr. Orozco. She admits to significant alcohol use due to her poor coping mechanism after the loss of her . No other significant history. She is a nonsmoker. She presented here to the emergency room yesterday with having increasing shortness of breath. Progressive dyspnea on exertion. She had been seen by her PCP earlier was told she had fluid in her left lung and if it were to get worse to come to the hospital. Her chest x-ray here revealed significant right- sided pleural effusion with minimal left-sided pleural effusion. Ultrasound of the chest revealed a 9.3 cm pocket on the right. 1.9 cm on the left. Abdominal ultrasound revealed significant peritoneal fluid as well. White count 9.4. Hemoglobin 11.1. MCV 106.5. Platelets 149,000. INR 2.0. Creatinine 0.51. AST 186. Albumin 2.3. Total protein 6.2. Hepatitis screen on 03/28/2018 was negative. She is seen today in consultation on the regular medical floor. She is awake and alert in no acute distress. She is dyspneic with minimal exertion. Maintaining O2 saturations in the 90s on room air. She is jaundice, sclera icteric. Currently on Lasix 80 mg by mouth daily along with Aldactone 50 mg daily. The patient is seen today 04/20/2018 in follow-up on the regular medical floor. She did undergo a right-sided thoracentesis by Dr. Weber yesterday with 2700 ML's of serosanguineous fluid returned. Fluid analysis pending. She is breathing much easier today. Maintaining good O2 saturations in the 90s on room air. She still has some abdominal discomfort. She's been seen by GI services who request interventional radiology to perform a paracentesis. INR 1.8 today. She remains on Lasix 80 mg daily along with Aldactone. The patient is seen today 04/21 in follow-up on the regular medical floor. She is awake and alert in no acute distress. She is breathing about the same today as compared to yesterday. Currently requiring 4 L/m per nasal cannula to maintain O2 saturations in the 90s, mainly with drops and saturations during the night. She's afebrile. Paracentesis is pending today per interventional radiology. INR 1.7. White count 8.7. Hemoglobin and 0.7. MCV 106.9. Pleural fluid cultures are pending. She remains on Lasix 80 mg and Aldactone 50 mg daily. Patient was reevaluated today on 04/22/2017, patient is doing fairly well, breathing easier, she had right-sided thoracentesis and she had paracentesis yesterday. She had over 5 L of fluid drained from her abdomen. Remains on Aldactone, which is also on Lasix, feeling much better, breathing easier, however her chest x-ray today continues to show good sized right-sided pleural effusion, patient may actually benefit from another right-sided thoracentesis. I will recommend an ultrasound of the chest to be done in the morning, and if it does confirm significant effusion, may have to be drained again by Dr. Anaya , or by interventional radiology. Her INR was 1.7 yesterday, it is 1.8 today. On 04/23/2018 patient seen in follow-up. She is calm and comfortable, denies any distress, no dyspnea, room air pulse ox is 94%, afebrile, repeat ultrasound of the chest showed right pleural effusion pocket of 2.2 cm, with no pleural fluid pocket on the left. Lung sounds are clear, diminished at the bases. Pleural fluid culture showed methicillin-resistant staph aureus, peritoneal fluid culture is pending. She was started on IV vancomycin, pleural fluid analysis showed transudative fluid. On 09/22/2018 patient seen in follow-up on medical surgical floor. She is awaiting the placement of her PICC line catheter for antibiotic infusions. Patient was found to have MRSA in the pleural fluid cultures. The infectious disease service has been consulted. Patient is supposed to be going home with the antibiotics per ID service recommendations once the PICC line is in place, denies any shortness of breath, denies any fever or chills. Vital signs are stable, she is on room air, the pulse ox of 93%. We'll fluid cytology was negative. Peritoneal fluid cytology is pending. Today's labs have been reviewed, white count is 12.0, hemoglobin is 11.8, serum sodium is 136, stable electrolytes are within normal limits, renal profile is normal. Objective - Vital Signs Vital signs: Vital Signs Temp 97.8 F 04/24/18 12:32 Pulse 91 04/24/18 12:32 Resp 16 04/24/18 12:32 BP 112/69 04/24/18 12:32 Pulse Ox 93 L 04/24/18 12:32 Intake & Output 04/23/18 04/24/18 04/24/18 18:59 06:59 18:59 Intake Total 250 1090 400 Balance 250 1090 400 Intake: Intake, IV Titration 250 500 400 Amount Vancomycin 1,250 mg In 250 Sodium Chloride 0.9% 250 ml @ 125 mls/hr IVPB Q24H [facility] Rx#:[id number] Vancomycin 1,750 mg In 400 Sodium Chloride 0.9% 500 ml 500 ml @ 167 mls/hr IVPB Q12HR [facility] Rx#: [id number] Vancomycin 1,750 mg In 500 Sodium Chloride 0.9% 500 ml 500 ml @ 167 mls/hr IVPB Q8H [facility] Rx#: [id number] Oral 590 Other: Voiding Method Toilet Toilet # Voids 3 # Bowel Movements 1 1 - Exam GENERAL EXAM: Alert, pleasant, 52-year-old white female comfortable in no apparent distress. HEAD: Normocephalic/atraumatic. EYES: Normal reaction of pupils, equal size. Conjunctiva pink, sclera white. NOSE: Clear with pink turbinates. THROAT: No erythema or exudates. NECK: No masses, no JVD, no thyroid enlargement, no adenopathy. CHEST: No chest wall deformity. Symmetrical expansion. LUNGS: Equal air entry with no crackles, wheeze, rhonchi or dullness. CVS: Regular rate and rhythm, normal S1 and S2, no gallops, no murmurs, no rubs ABDOMEN: Soft, nontender. No hepatosplenomegaly, normal bowel sounds, no guarding or rigidity. EXTREMITIES: No clubbing, no edema, no cyanosis, 2+ pulses and upper and lower extremities. MUSCULOSKELETAL: Muscle strength and tone normal. SPINE: No scoliosis or deformity SKIN: No rashes CENTRAL NERVOUS SYSTEM: Alert and oriented -3. No focal deficits, tone is normal in all 4 extremities. PSYCHIATRIC: Alert and oriented -3. Appropriate affect. Intact judgment and insight. - Labs CBC & Chem 7: 04/24/18 07:43 04/24/18 07:43 Labs: Abnormal Lab Results - Last 24 Hours (Table) 04/24/18 04/24/18 Range/Units 07:43 07:43 WBC 12.0 H (3.8-10.6) k/uL RBC 3.55 L (3.80-5.40) m/uL MCV 107.0 H (80.0-100.0) fL Neutrophils # 8.8 H (1.3-7.7) k/uL Sodium 136 L (137-145) mmol/L Calcium 7.9 L (8.4-10.2) mg/dL Microbiology - Last 24 Hours (Table) 04/21/18 11:50 Gram Stain - Preliminary Peritoneal Fluid Body Fluid Culture - Preliminary 04/21/18 11:50 Acid Fast Bacilli Smear - Final Peritoneal Fluid Acid Fast Bacilli Culture - Preliminary 04/19/18 17:45 Gram Stain - Final Pleural Fluid Body Fluid Culture - Final Methicillin resist S. aureus Assessment and Plan Plan: assessment #1 Dyspnea secondary to a large right-sided pleural effusion and small left pleural effusion. Status post right-sided thoracentesis on 04/19/2018 with 2.7 L removed. Fluid atelectasis is consistent with transudate. Patient seems to be reaccumulating fluid on the right pleural space, we'll arrange for ultrasound tomorrow on possible thoracentesis tomorrow assuming the ultrasound shows significant or good sized pleural effusion. Today's ultrasound of the chest showed 2.2 cm pocket on the right, and 0 cm on the left. #2. Pleural fluid sepsis, with cultures positive for methicillin-resistant staph aureus, not related to pneumonia, as the pleural fluid analysis showed transudative fluid #3 Abdominal distention with moderate peritoneal fluid secondary to cirrhosis. Plan is for paracentesis today. #4 Alcoholic cirrhosis. #5 Hypercoagulable state secondary to above. INR today is 1.8 #6 Elevated AST secondary to above. #7 Poor coping mechanisms secondary to the loss of her . Plan: Patient clinically remains stable, no fever or chills, she is awaiting placement of a PICC line central line catheter, ID service has been consulted, patient is on IV vancomycin for MRSA in the pleural fluid cultures. Patient is stable to be discharge home after the placement of the catheter with antibiotics per ID service. I performed a history & physical examination of the patient and discussed their management with my nurse practitioner, Lakeisha Harrell. I reviewed the nurse practitioner's note and agree with the documented findings and plan of care. Lung sounds are positive for diminished breath sounds at the bases. The findings and the impression was discussed with the patient. I attest to the documentation by the nurse practitioner. Time with Patient: Less than 30
--- NOTE | 2018-04-24 15:25 | IR ---
PICC LINE PLACEMENT: HISTORY: Infection requiring long-term antibiotic therapy PROCEDURE: Ultrasound and fluoroscopic guidance of PICC line placement. COMPLICATIONS: None ANESTHESIA: 1. 1% Lidocaine locally. FINDINGS/TECHNIQUE: The procedure was explained to the patient. The risks, complications, benefits and alternatives were discussed and any questions were answered. Informed consent was obtained. The patient was placed supine on the fluoroscopic table and prepped and draped in the usual sterile fash ion. Utilizing a 21 gauge needle and sonographic and fluoroscopic guidance, access in the right bas ilic vein was achieved and there is placement of a 0.018 guidewire. The vein is patent. A 4-F sheat h was placed over the guidewire. The guidewire and dilator were removed and a 4-F. PICC line was chio hosea through the sheath with the tip at the level of the SVC. The sheath was removed, the catheter wa s flushed and sutured into position. The patient was stable throughout the procedure and remained st able upon discharge from the Department of Radiology. The vein puncture was patent under ultrasound. A ramirez scale image was obtained to document patency of the vein punctured. All elements of the maximal barrier technique were utilized. FLUOROSCOPY TIME: 0.7 minutes, one image submitted IMPRESSION: Successful PICC line placement under ultrasound and fluoroscopic guidance. Note is made there appear to be a central occlusion within the left upper extremity.
[2018-04-24] MEDS ORDERED: RX INFO: IV CONTRAST WAS GIVEN 1 EACH MISC MISCELLANE PRN (16:38)
--- NOTE | 2018-04-24 18:25 | CT ---
EXAMINATION TYPE: CT chest w con DATE OF EXAM: 04/24/2018 COMPARISON: None HISTORY: pneumonia CT DLP: 405.8 mGycm Automated exposure control for dose reduction was used. CONTRAST: CT scan of the chest is performed with IV Contrast, patient injected with 100 mL of Isovue 300. FINDINGS: There are bilateral pleural effusions and larger on the right side. Heart is enlarged. There is conso lidation and atelectasis in both lower lobes. There is no mediastinal adenopathy. There are no hilar masses. Thoracic aorta shows no aneurysm or dissection. The bony thorax is intact. There is abdominal ascites. IMPRESSION: Pleural effusions and infiltrate and atelectasis at the lung bases is increased compared to old CT scan abdomen 03/29/2018. No suspicious pulmonary mass seen. Abdominal ascites similar to old exam.
[2018-04-24] MEDS: FAMOTIDINE 20 MG TAB PO SCH (21:41)
--- NOTE | 2018-04-24 22:13 | P.PN ---
Subjective Patient is a 52-year-old female with a known history of recently diagnosed alcoholic liver cirrhosis about a month back, came to ER with complaints of worsening shortness of breath for the past 2 weeks. Patient also having abdominal distention. No complaints of fever or chills. No complaints of abdominal pain. No nausea vomiting or diarrhea. her chest x-ray which showed fluid in her left lung: large right-sided pleural effusion and small left pleural effusion. She is status post thoracocentesis on 04/19/2018. Also patient status post paracentesis for her ascites on 04/21/2018. GI and pulmonary teams were following the patient. Patient feels better and she was placed on Lasix, Aldactone and low-salt diet. On the discharge no chest pain, no dyspnea. No coughing. Less abdominal distention and no pain. pt is been followed by pulmonary and GI teams and both team cleared pt for discharge from their prespective however pt body fluid culture is came back positive for MRSA. pt was started on vancomycin , pharmacy to dose and called ID consult. 04/24/17 pt is seen in the general medical floor, for ascitis and pleural effusion and positive MRSA in his pleural fluid culture, which transudate rather than exudates. pt is had picc line today , remains on vanocmycin and ID team have been consulted. pt is more awake, and alert today , she denies chest pain or dyspena , no coughing , no abdominal pain or n/v, she is tolerated diet well , vitals are stable , she has mild leukocytosis today at 12k. discharge plan in 24 -48 hours CONSTITUTIONAL: No fever, no malaise, no fatigue. HEENT: No recent visual problems or hearing problems. Denied any sore throat. CARDIOVASCULAR: No orthopnea, PND, no palpitations, no syncope. NEUROLOGICAL: No headaches, no weakness, no numbness. HEMATOLOGICAL: Denies any bleeding or petechiae. GENITOURINARY: Denies any burning micturition, frequency, or urgency. MUSCULOSKELETAL/RHEUMATOLOGICAL: Denies any joint pain, swelling, or any muscle pain. ENDOCRINE: Denies any polyuria or polydipsia. medication : spironolactone , lasix, pepcid, heparin , vancomycin Objective - Vital Signs Vital signs: Vital Signs Temp 98.0 F 04/24/18 21:00 Pulse 99 04/24/18 21:00 Resp 16 04/24/18 21:00 BP 106/49 04/24/18 21:00 Pulse Ox 93 L 04/24/18 21:00 Intake & Output 04/24/18 04/24/18 04/25/18 06:59 18:59 06:59 Intake Total 1090 400 Balance 1090 400 Intake: Intake, IV Titration 500 400 Amount Vancomycin 1,750 mg In 400 Sodium Chloride 0.9% 500 ml 500 ml @ 167 mls/hr IVPB Q12HR [facility] Rx#: [id number] Vancomycin 1,750 mg In 500 Sodium Chloride 0.9% 500 ml 500 ml @ 167 mls/hr IVPB Q8H [facility] Rx#: [id number] Oral 590 Other: Voiding Method Toilet # Voids 3 # Bowel Movements 1 - Exam Gen: patient is a AAOx3, little drowsy, no distress CVS: S1-S2, RRR, no murmur Lungs: B/L CTA, no wheezing Abdomen: soft, mild abdominal distention, no tenderness, positive bowel sounds. Extremity: no leg edema or induration - Labs CBC & Chem 7: 04/24/18 07:43 04/24/18 07:43 Labs: Abnormal Lab Results - Last 24 Hours (Table) 04/24/18 04/24/18 Range/Units 07:43 07:43 WBC 12.0 H (3.8-10.6) k/uL RBC 3.55 L (3.80-5.40) m/uL MCV 107.0 H (80.0-100.0) fL Neutrophils # 8.8 H (1.3-7.7) k/uL Sodium 136 L (137-145) mmol/L Calcium 7.9 L (8.4-10.2) mg/dL Microbiology - Last 24 Hours (Table) 04/21/18 11:50 Gram Stain - Preliminary Peritoneal Fluid Body Fluid Culture - Preliminary 04/21/18 11:50 Acid Fast Bacilli Smear - Final Peritoneal Fluid Acid Fast Bacilli Culture - Preliminary Assessment and Plan Assessment: MRSA in body fluid culture of her pleural fluid Shortness of breath secondary to large right pleural effusion and abdominal distention with ascites, improving Status post thoracentesis and ultrasound-guided paracentesis. 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 And low salt diet. status post thoracentesis and paracentesis. pt was started on vancomycin pharmacy to dose and called ID consult. Pulmonary and GI is following. Continue to follow closely. Further recommendations based on the clinical course. Prognosis is guarded. dvt px : sc heparin GI px: pepcid prognosis is guarded
--- NOTE | 2018-04-24 23:42 | CONS ---
CONSULTATION DATE OF SERVICE: 04/24/2018 REASON FOR CONSULTATION: MRSA cultures from pleural fluid. HISTORY OF PRESENT ILLNESS: The patient is a 52-year-old female with recent diagnosis of alcoholic liver cirrhosis presenting to the ER at [facility] on 04/17/2018 with the chief complaint of increasing shortness of breath. Breathing had been getting worse over a week before she presented to hospital with shortness of breath with minimal exertion and even at rest. The patient denies significant chest pain. She did have a very minimal cough but not bringing up any sputum. No nausea, no vomiting. No choking on food. No abdominal pain or any diarrhea. With these symptoms, the patient was evaluated in the outpatient setting by her primary care physician. She had a chest x- ray and she was told she has fluid on her lung. Subsequently the patient was evaluated at [facility] ER. The patient did have a chest x-ray which confirmed the finding of pleural fluid. Chest ultrasound with bilateral pleural effusions, greater on the right at 9.3 cm, left 1.9 cm. The patient is status post thoracocentesis done by Dr. Ramey on 04/19/2018 and the patient had 2700 mL of serosanguineous fluid drained. The thoracocentesis fluid was cloudy. Nucleated cells were only 100, protein 1680. She did not have any blood cultures done. The pleural fluid cultures came back positive with MRSA. She was started on vancomycin. A PICC line was ordered. Infectious Disease was consulted for further recommendations regarding antibiotic therapy. REVIEW OF SYSTEMS: CONSTITUTIONAL: Positive for weakness. No high-grade fever. EYES: No complaint. ENT: No complaint. RESPIRATORY: As per HPI. CARDIOVASCULAR: No complaint. GENITOURINARY: No complaint. GASTROINTESTINAL: As per HPI. MUSCULOSKELETAL: No complaint. INTEGUMENTARY: No complaint. PSYCHOLOGICAL: No complaint. ENDOCRINE: No complaint. NEUROLOGICAL: No complaint. PAST MEDICAL HISTORY: Alcoholic cirrhosis. PAST SURGICAL HISTORY: Cholecystectomy. SOCIAL HISTORY: No history of smoking, drinking or drug use. FAMILY HISTORY: Mother with history of macular degeneration. Father with history of seizure. ALLERGIES: NO KNOWN DRUG ALLERGIES. MEDICATIONS: The patient is currently on: 1. Vancomycin 1750 q.12 hours. 2. Aldactone. 3. Potassium chloride. 4. Heparin. 5. Lasix. 6. Pepcid. PHYSICAL EXAMINATION: Blood pressure is 106/49, pulse of 99, temperature 98. She is 93% on 2 L nasal cannula. General description is a middle-aged female lying in bed in no distress. No tachypnea or accessory muscle of respiration use. HEENT examination shows slight scleral icterus. Oral mucosa membrane dry. NECK: Trachea is center. No thyromegaly. LUNGS: Unlabored breathing with decreased breath sounds in the bases. No wheeze. HEART: S1, S2. Regular rate and rhythm. ABDOMEN: Soft. Mildly distended. No guarding or rigidity. EXTREMITIES: No edema of the feet. SKIN EXAMINATION: No rash or mass palpable. Neurologically patient is awake, alert, oriented x3. Mood and affect normal. LABS: BUN of 8, creatinine 0.55. Hemoglobin is 11.2, white count 12,000. Pleural fluid culture positive for MRSA. No blood culture done this admission. DIAGNOSTIC IMPRESSION AND PLAN: Patient admitted to hospital with increasing shortness of breath in this patient who does have underlying alcoholic liver cirrhosis with evidence of bilateral pleural effusion, more marked on the right side. Fluid was cloudy. Culture positive for MRSA. Will have to make sure there is no evidence of any loculated pleural fluid that may need more aggressive surgical intervention rather than just simple antibiotic therapy. PLAN: A CT of the chest with contrast will be ordered to make sure no evidence of any loculated fluid. If negative, patient will be continued on vancomycin, Pharmacy to dose, target of 15 for at least 2 to 3 weeks, depending on clinical response. Thank you for this consultation. Will follow this patient along with you. MMODL / IJN: [id number] /
[2018-04-25 07:47] LABS: Basophils # (A) 0.1 k/uL (0-0.2); Basophils % (A) 1 %; Eosinophils # (A) 0.4 k/uL (0-0.7); Eosinophils % (A) 4 %; HCT 36.1 % (34.0-46.0); Lymphocytes # (A) 1.2 k/uL (1.0-4.8); Lymphocytes % (A) 14 %; MCH 32.6 pg (25.0-35.0); MCHC 30.6 g/dL (31.0-37.0); MCV 106.5 fL (80.0-100.0); Macrocytosis Moderate; Mean Platelet Volume 7.4; Monocytes # (A) 0.5 k/uL (0-1.0); Monocytes % (A) 6 %; Neutrophils # (A) 6.4 k/uL (1.3-7.7); Neutrophils % (A) 74 %; Platelet Count 139 k/uL (150-450); RBC 3.39 m/uL (3.80-5.40); WBC 8.7 k/uL (3.8-10.6)
[2018-04-25 08:00] LABS: Anion Gap 3 mmol/L; Blood Urea Nitrogen 8 mg/dL (7-17); Calcium 8.2 mg/dL (8.4-10.2); Carbon Dioxide 29 mmol/L (22-30); Chloride 103 mmol/L (98-107); Glucose 106 mg/dL (74-99); Potassium 3.6 mmol/L (3.5-5.1); Sodium 135 mmol/L (137-145)
[2018-04-25] MEDS: VANCOMYCIN 1,750 MG in SODIUM CHLORIDE 0.9% 500 ML 500 ML IVPB SCH ×2 (08:23→21:46)
[2018-04-25] MEDS: FUROSEMIDE 40 MG TAB PO SCH (08:23)
[2018-04-25] MEDS: HEPARIN SODIUM,PORCINE 5,000 UNIT/ML 1 ML VIAL SQ SCH ×2 (08:23→21:45)
[2018-04-25] MEDS: SPIRONOLACTONE 25 MG TAB PO SCH (08:23)
[2018-04-25] MEDS: POTASSIUM CHLORIDE ER 10 MEQ TAB.ER.PRT PO SCH (08:23)
[2018-04-25] MEDS: FAMOTIDINE 20 MG TAB PO SCH ×2 (08:23→21:45)
[2018-04-25 11:09] VITALS: BMI 36.1
--- NOTE | 2018-04-25 14:56 | P.PN ---
Subjective Patient is a 52-year-old female with a known history of recently diagnosed alcoholic liver cirrhosis about a month back, came to ER with complaints of worsening shortness of breath for the past 2 weeks. Patient also having abdominal distention. No complaints of fever or chills. No complaints of abdominal pain. No nausea vomiting or diarrhea. her chest x-ray which showed fluid in her left lung: large right-sided pleural effusion and small left pleural effusion. She is status post thoracocentesis on 04/19/2018. Also patient status post paracentesis for her ascites on 04/21/2018. GI and pulmonary teams were following the patient. Patient feels better and she was placed on Lasix, Aldactone and low-salt diet. On the discharge no chest pain, no dyspnea. No coughing. Less abdominal distention and no pain. pt is been followed by pulmonary and GI teams and both team cleared pt for discharge from their prespective however pt body fluid culture is came back positive for MRSA. pt was started on vancomycin , pharmacy to dose and called ID consult. 04/24/18 pt is seen in the general medical floor, for ascitis and pleural effusion and positive MRSA in his pleural fluid culture, which transudate rather than exudates. pt is had picc line today , remains on vanocmycin and ID team have been consulted. pt is more awake, and alert today , she denies chest pain or dyspena , no coughing , no abdominal pain or n/v, she is tolerated diet well , vitals are stable , she has mild leukocytosis today at 12k. discharge plan in 24 -48 hours 04/25/2018 Patient with no significant chest pain or dyspnea. No abdominal pain. 13 diet well. However CAT scan showing worsening pleural effusion. Patient was hypoxic last night at 86 and this morning at 83% although her saturation the 90s currently. Discussed the case with infectious disease and patient can be discharged on vancomycin as she has PICC line, and monitor labs were be sent to Dr. Coley upon discharge. Patient aware of this plan. However because of her hypoxia patient she will need for a centesis today and will follow up tomorrow with chest x-ray. Patient informed with this plan and she agrees. Pulmonary input is appreciated CONSTITUTIONAL: No fever, no malaise, no fatigue. HEENT: No recent visual problems or hearing problems. Denied any sore throat. CARDIOVASCULAR: No orthopnea, PND, no palpitations, no syncope. NEUROLOGICAL: No headaches, no weakness, no numbness. HEMATOLOGICAL: Denies any bleeding or petechiae. GENITOURINARY: Denies any burning micturition, frequency, or urgency. MUSCULOSKELETAL/RHEUMATOLOGICAL: Denies any joint pain, swelling, or any muscle pain. ENDOCRINE: Denies any polyuria or polydipsia. medication : spironolactone , lasix, pepcid, heparin , vancomycin Objective - Vital Signs Vital signs: Vital Signs Temp 97.7 F 04/25/18 12:40 Pulse 102 H 04/25/18 12:40 Resp 16 04/25/18 12:40 BP 116/57 04/25/18 12:40 Pulse Ox 97 04/25/18 12:40 Intake & Output 04/24/18 04/25/18 04/25/18 18:59 06:59 18:59 Intake Total 400 400 Balance 400 400 Weight 104.78 kg Intake: Intake, IV Titration 400 Amount Vancomycin 1,750 mg In 400 Sodium Chloride 0.9% 500 ml 500 ml @ 167 mls/hr IVPB Q12HR [facility] Rx#: [id number] Oral 400 Other: Voiding Method Toilet Toilet # Voids 2 3 - Exam Gen: patient is a AAOx3, little drowsy, no distress CVS: S1-S2, RRR, no murmur Lungs: B/L CTA, no wheezing Abdomen: soft, mild abdominal distention, no tenderness, positive bowel sounds. Extremity: no leg edema or induration - Labs CBC & Chem 7: 04/25/18 07:13 04/25/18 07:13 Labs: Abnormal Lab Results - Last 24 Hours (Table) 04/25/18 04/25/18 Range/Units 07:13 07:13 RBC 3.39 L (3.80-5.40) m/uL Hgb 11.0 L (11.4-16.0) gm/dL MCV 106.5 H (80.0-100.0) fL MCHC 30.6 L (31.0-37.0) g/dL Plt Count 139 L (150-450) k/uL Sodium 135 L (137-145) mmol/L Glucose 106 H (74-99) mg/dL Calcium 8.2 L (8.4-10.2) mg/dL Microbiology - Last 24 Hours (Table) 04/21/18 11:50 Gram Stain - Preliminary Peritoneal Fluid Body Fluid Culture - Preliminary Assessment and Plan Assessment: MRSA in body fluid culture of her pleural fluid Shortness of breath secondary to large right pleural effusion and abdominal distention with ascites, improving Status post thoracentesis and ultrasound-guided paracentesis. 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 And low salt diet. status post thoracentesis and paracentesis. pt was started on vancomycin pharmacy to dose and called ID consult. Pulmonary and GI is following. Continue to follow closely. Further recommendations based on the clinical course. Prognosis is guarded. dvt px : sc heparin GI px: pepcid prognosis is guarded
[2018-04-25 15:52] LABS: INR 1.7 (<1.2); Prothrombin Time 16.6 sec (9.0-12.0)
--- NOTE | 2018-04-25 16:37 | PN ---
PROGRESS NOTE DATE OF SERVICE: 04/25/2018 REASON FOR FOLLOWUP: MRSA right-sided empyema. INTERVAL HISTORY: The patient is afebrile. The patient did have a problem with hypoxemia last night and did require oxygen. The patient denies having any chest pain. Breathing has slightly improved. Very minimal cough. No nausea, no vomiting. No abdominal pain and no diarrhea. PHYSICAL EXAMINATION: Blood pressure is 116/57, pulse 102, temperature 97.5. She is 97% on 2 L cannula. General description is a middle-aged female lying in bed in no distress. RESPIRATORY SYSTEM: Unlabored breathing with decreased breath sounds at the base. No wheeze. HEART: S1, S2. Regular rate and rhythm. ABDOMEN: Soft. Mildly distended. No guarding or rigidity. EXTREMITIES: feet. LABS: Hemoglobin is 11, white count 8.5 with a BUN of 8, creatinine 0.56. DIAGNOSTIC IMPRESSION AND PLAN: Patient with a positive pleural fluid culture with methicillin-resistant Staphylococcus aeruginosa in a patient with right-sided pleural effusion. CT of chest negative for any loculated fluid; however, the fluid has increased in size. RN to check with Pulmonary, as the patient would benefit from thoracocentesis before discharge. If not, she will continue with vancomycin, Pharmacy to dose, target of 15, for another 2 weeks with close outpatient followup. MMODL / IJN: [id number] /
[2018-04-26 05:41] VITALS: RESP 16; TEMP 98.3
--- NOTE | 2018-04-26 07:46 | XR ---
EXAMINATION TYPE: XR chest 2V DATE OF EXAM: 04/26/2018 COMPARISON: 04/22/2018 INDICATION: Recurrent right pleural effusion TECHNIQUE: Frontal and lateral views of the chest are obtained. FINDINGS: The heart size is indistinct. The pulmonary vasculature is prominent. There is complete opacification of the right lung. Minimal left pleural effusion may be present. A ri ght PICC line is present with the tip in the superior vena cava region.. IMPRESSION: 1. Opacification of the right lung could be related to a large pleural effusion. 2. Placement of a PICC line on the right with the tip in the region of the superior vena cava. A Marina level critical message alert has been initiated for Moses Wright MD via the [employer] Critical Results System on 04/26/2018 7:43 AM. This message alert has been sent to Moses martinez MD via the preferences provided by the clinician for the receipt of Radiology Critical Finding s. Message ID [id number].
[2018-04-26] MEDS: FAMOTIDINE 20 MG TAB PO SCH (08:10)
[2018-04-26] MEDS: FUROSEMIDE 40 MG TAB PO SCH (08:10)
[2018-04-26] MEDS: HEPARIN SODIUM,PORCINE 5,000 UNIT/ML 1 ML VIAL SQ SCH (08:11)
[2018-04-26] MEDS: SPIRONOLACTONE 25 MG TAB PO SCH (08:11)
[2018-04-26] MEDS: VANCOMYCIN 1,750 MG in SODIUM CHLORIDE 0.9% 500 ML 500 ML IVPB SCH (08:14)
--- NOTE | 2018-04-26 08:42 | US ---
EXAMINATION TYPE: US chest DATE OF EXAM: 04/26/2018 COMPARISON: NONE CLINICAL HISTORY: right pleural effusion . TECHNIQUE: Targeted ultrasound of the posterior lower EXAM MEASUREMENTS: Right Pleural Effusion pocket size: 6.2 cm Right skin surface to fluid distance: 3.0 cm Left Pleural Effusion pocket size: 1.0 cm Right side marked for possible thoracentesis outside the dept. Left side not marked for possible thoracentesis outside the dept. Pulmonologists are able to review the images in the patient?s EMR. IMPRESSIONS: 1. Right pleural effusion.
[2018-04-26 09:39] LABS: Basophils # (A) 0.1 k/uL (0-0.2); Basophils % (A) 1 %; Eosinophils # (A) 0.4 k/uL (0-0.7); Eosinophils % (A) 4 %; HCT 39.1 % (34.0-46.0); HGB 11.8 gm/dL (11.4-16.0); Hypochromasia Slight; Lymphocytes # (A) 1.5 k/uL (1.0-4.8); Lymphocytes % (A) 16 %; MCH 32.3 pg (25.0-35.0); MCHC 30.1 g/dL (31.0-37.0); MCV 107.5 fL (80.0-100.0); Macrocytosis Moderate; Mean Platelet Volume 7.8; Monocytes # (A) 0.6 k/uL (0-1.0); Monocytes % (A) 6 %; Neutrophils # (A) 6.8 k/uL (1.3-7.7); Neutrophils % (A) 71 %; Platelet Count 133 k/uL (150-450); RBC 3.64 m/uL (3.80-5.40); RDW 13.8 % (11.5-15.5); WBC 9.5 k/uL (3.8-10.6)
[2018-04-26 09:50] LABS: Anion Gap 5 mmol/L; Blood Urea Nitrogen 8 mg/dL (7-17); Calcium 8.1 mg/dL (8.4-10.2); Carbon Dioxide 28 mmol/L (22-30); Chloride 101 mmol/L (98-107); Glucose 111 mg/dL (74-99); Potassium 3.4 mmol/L (3.5-5.1); Sodium 134 mmol/L (137-145)
[2018-04-26] MEDS ORDERED: POTASSIUM CHLORIDE ER 20 MEQ TAB.ER PO STA (10:12)
[2018-04-26] MEDS: LIDOCAINE 1% INJ 10MG/ML (20 ML MDV) SQ ONE ×2 (10:23→10:52)
--- NOTE | 2018-04-26 11:05 | PCN ---
PROCEDURE NOTE PROCEDURE: Right thoracentesis. PREOPERATIVE DIAGNOSIS: Right pleural effusion. POSTOPERATIVE DIAGNOSIS: Right pleural effusion. OPERATORS: Dr. Anaya, Dr. Chacon, Anais Harrell. Indication Pleural effusion. A time-out was completed verifying correct patient, procedure, site, positioning , and implant (s) or special equipment if applicable. The right posterior chest was marked by ultrasound guidance and appropriate fluid pocket was identified and marked. Patient was positioned, prepped and draped in usual sterile fashion. Lidocaine was used to anesthetize the area. A Thoracentesis catheter was introduced into the pleural space and fluid was removed. Blood loss was none. A chest x-ray was ordered to evaluate for pneumothorax. Total Fluid Removed: 2.4 L Color of Fluid pink tinged Fluid was not sent for appropriate laboratory tests. Patient tolerated the procedure well and there were no complications. The right posterior chest was marked by ultrasound. The fluid will not be sent for analysis. It was previously sent. There was no immediate complication. There was universal timeout. There was informed consent. 2.4 L of fluid was removed from the right pleural space. The patient tolerated the procedure well. There was no immediate complication. A chest x-ray will be ordered to rule out complication. Again, the patient tolerated the procedure very well. MMODL / IJN: [id number] / MTDD
[2018-04-26 12:39] VITALS: BP 106/56; PULSE 99
--- NOTE | 2018-04-26 13:20 | XR ---
EXAMINATION TYPE: XR chest 1V portable DATE OF EXAM: 04/26/2018 COMPARISON: 04/26/2018 earlier exam INDICATION: Status post thoracentesis TECHNIQUE: Single frontal view of the chest is obtained. FINDINGS: The heart size is prominent. The pulmonary vasculature is normal. There is a moderate right pleural effusion. This is diminished from comparison. PICC line is present with the tip in the proximal superior vena cava region. Some minimal atelectasis may be at the left b ase. Degree of inspiration is somewhat limited. IMPRESSION: 1. No pneumothorax postthoracentesis. 2. Moderate residual right pleural fluid. 3. Mild subsegmental atelectasis at the left base.
--- NOTE | 2018-04-26 14:04 | P.PN ---
Subjective Progress Note Date: 04/26/18 Principal diagnosis: Ascites and pleural effusion This is a very pleasant 52-year-old female patient who follows with Dr. Bridges as her primary care physician. She has a history of alcoholic cirrhosis. This is a fairly recent diagnosis. She has been seen by Dr. Orozco. She admits to significant alcohol use due to her poor coping mechanism after the loss of her . No other significant history. She is a nonsmoker. She presented here to the emergency room yesterday with having increasing shortness of breath. Progressive dyspnea on exertion. She had been seen by her PCP earlier was told she had fluid in her left lung and if it were to get worse to come to the hospital. Her chest x-ray here revealed significant right- sided pleural effusion with minimal left-sided pleural effusion. Ultrasound of the chest revealed a 9.3 cm pocket on the right. 1.9 cm on the left. Abdominal ultrasound revealed significant peritoneal fluid as well. White count 9.4. Hemoglobin 11.1. MCV 106.5. Platelets 149,000. INR 2.0. Creatinine 0.51. AST 186. Albumin 2.3. Total protein 6.2. Hepatitis screen on 03/28/2018 was negative. She is seen today in consultation on the regular medical floor. She is awake and alert in no acute distress. She is dyspneic with minimal exertion. Maintaining O2 saturations in the 90s on room air. She is jaundice, sclera icteric. Currently on Lasix 80 mg by mouth daily along with Aldactone 50 mg daily. The patient is seen today 04/20/2018 in follow-up on the regular medical floor. She did undergo a right-sided thoracentesis by Dr. Weber yesterday with 2700 ML's of serosanguineous fluid returned. Fluid analysis pending. She is breathing much easier today. Maintaining good O2 saturations in the 90s on room air. She still has some abdominal discomfort. She's been seen by GI services who request interventional radiology to perform a paracentesis. INR 1.8 today. She remains on Lasix 80 mg daily along with Aldactone. The patient is seen today 04/21 in follow-up on the regular medical floor. She is awake and alert in no acute distress. She is breathing about the same today as compared to yesterday. Currently requiring 4 L/m per nasal cannula to maintain O2 saturations in the 90s, mainly with drops and saturations during the night. She's afebrile. Paracentesis is pending today per interventional radiology. INR 1.7. White count 8.7. Hemoglobin and 0.7. MCV 106.9. Pleural fluid cultures are pending. She remains on Lasix 80 mg and Aldactone 50 mg daily. Patient was reevaluated today on 04/22/2017, patient is doing fairly well, breathing easier, she had right-sided thoracentesis and she had paracentesis yesterday. She had over 5 L of fluid drained from her abdomen. Remains on Aldactone, which is also on Lasix, feeling much better, breathing easier, however her chest x-ray today continues to show good sized right-sided pleural effusion, patient may actually benefit from another right-sided thoracentesis. I will recommend an ultrasound of the chest to be done in the morning, and if it does confirm significant effusion, may have to be drained again by Dr. Anaya , or by interventional radiology. Her INR was 1.7 yesterday, it is 1.8 today. On 04/23/2018 patient seen in follow-up. She is calm and comfortable, denies any distress, no dyspnea, room air pulse ox is 94%, afebrile, repeat ultrasound of the chest showed right pleural effusion pocket of 2.2 cm, with no pleural fluid pocket on the left. Lung sounds are clear, diminished at the bases. Pleural fluid culture showed methicillin-resistant staph aureus, peritoneal fluid culture is pending. She was started on IV vancomycin, pleural fluid analysis showed transudative fluid. On 09/22/2018 patient seen in follow-up on medical surgical floor. She is awaiting the placement of her PICC line catheter for antibiotic infusions. Patient was found to have MRSA in the pleural fluid cultures. The infectious disease service has been consulted. Patient is supposed to be going home with the antibiotics per ID service recommendations once the PICC line is in place, denies any shortness of breath, denies any fever or chills. Vital signs are stable, she is on room air, the pulse ox of 93%. We'll fluid cytology was negative. Peritoneal fluid cytology is pending. Today's labs have been reviewed, white count is 12.0, hemoglobin is 11.8, serum sodium is 136, stable electrolytes are within normal limits, renal profile is normal. On 04/26/2018 patient seen in follow-up. Yesterday we asked the duration radiology to evaluate the patient for repeat paracentesis, and patient have ultrasound-guided paracentesis would removal of 2.7 L of peritoneal fluid. Today's chest x-ray showed opacification of the right lung related to large pleural effusion. Patient did have right-sided thoracentesis on Monday, removal of 2.7 L of pleural fluid. Patient had been more short of breath, and apparently hypoxemic, likely on 3 L per nasal cannula, her pulse ox is 98%, she is afebrile. We obtained consent for repeat right-sided thoracentesis, and Dr. Anaya performed a procedure at the bedside, would removal of 2.4 L of pink tinged clear pleural fluid. She tolerated procedure well, postprocedure chest x -ray has been reviewed, and showed no pneumothorax, moderate residual right pleural fluid. And mild subsegmental atelectasis at the left base. Today's lab work has been reviewed, showed white blood cell count of 9.5, hemoglobin of 11.8, sodium of 134, potassium is 3.4, rest of the electrolytes and renal profile were within normal limits. She had been started on oral Lasix 80 mg daily, and Aldactone to 50 mg daily. Did speak to the attending physician, and the patient, and the patient will likely need scheduled biweekly paracentesis, possibly thoracentesis. Would not increase the dose of diuretics at this time, to avoid intravascular depletion. Objective - Vital Signs Vital signs: Vital Signs Temp 98.3 F 04/26/18 05:00 Pulse 99 04/26/18 12:29 Resp 16 04/26/18 12:29 BP 106/56 04/26/18 12:29 Pulse Ox 98 04/26/18 12:29 Intake & Output 04/25/18 04/26/18 04/26/18 18:59 06:59 18:59 Intake Total 1090 Balance 1090 Weight 104.78 kg Intake: Intake, IV Titration 500 Amount Vancomycin 1,750 mg In 500 Sodium Chloride 0.9% 500 ml 500 ml @ 167 mls/hr IVPB Q12HR [facility] Rx#: [id number] Oral 590 Other: Voiding Method Toilet Toilet # Voids 3 2 - Exam GENERAL EXAM: Alert, pleasant, 52-year-old white female comfortable in no apparent distress. HEAD: Normocephalic/atraumatic. EYES: Normal reaction of pupils, equal size. Conjunctiva pink, sclera white. NOSE: Clear with pink turbinates. THROAT: No erythema or exudates. NECK: No masses, no JVD, no thyroid enlargement, no adenopathy. CHEST: No chest wall deformity. Symmetrical expansion. LUNGS: Equal air entry with diminished breath sounds on the right, dullness to percussion CVS: Regular rate and rhythm, normal S1 and S2, no gallops, no murmurs, no rubs ABDOMEN: Soft, nontender. No hepatosplenomegaly, normal bowel sounds, no guarding or rigidity. EXTREMITIES: No clubbing, no edema, no cyanosis, 2+ pulses and upper and lower extremities. MUSCULOSKELETAL: Muscle strength and tone normal. SPINE: No scoliosis or deformity SKIN: No rashes CENTRAL NERVOUS SYSTEM: Alert and oriented -3. No focal deficits, tone is normal in all 4 extremities. PSYCHIATRIC: Alert and oriented -3. Appropriate affect. Intact judgment and insight. - Labs CBC & Chem 7: 04/26/18 08:32 04/26/18 08:32 Labs: Abnormal Lab Results - Last 24 Hours (Table) 04/25/18 04/26/18 04/26/18 Range/Units 15:30 08:32 08:32 RBC 3.64 L (3.80-5.40) m/uL MCV 107.5 H (80.0-100.0) fL MCHC 30.1 L (31.0-37.0) g/dL Plt Count 133 L (150-450) k/uL PT 16.6 H (9.0-12.0) sec INR 1.7 H (<1.2) Sodium 134 L (137-145) mmol/L Potassium 3.4 L (3.5-5.1) mmol/L Glucose 111 H (74-99) mg/dL Calcium 8.1 L (8.4-10.2) mg/dL Microbiology - Last 24 Hours (Table) 04/21/18 11:50 Gram Stain - Final Peritoneal Fluid Body Fluid Culture - Final Assessment and Plan Plan: assessment #1 Dyspnea secondary to a large right-sided pleural effusion and small left pleural effusion. Status post right-sided thoracentesis on 04/19/2018 with 2.7 L removed. Fluid atelectasis is consistent with transudate. Patient had a reaccumulation of the fluid in the right pleural space, and today she had a repeat thoracentesis of the right lung, would removal of 2.4 L of pleural fluid. #2. Pleural fluid sepsis, with cultures positive for methicillin-resistant staph aureus, not related to pneumonia, as the pleural fluid analysis showed transudative fluid #3 Abdominal distention with moderate peritoneal fluid secondary to cirrhosis. Patient had paracentesis on 04/21/2018 with removal of 5 L of peritoneal fluid, patient had a reaccumulation, in less than a week, and yesterday on 04/25/2018 patient had a repeat paracentesis would removal 2.7 L of peritoneal fluid. #4 Alcoholic cirrhosis. #5 Hypercoagulable state secondary to above. INR today is 1.8 #6 Elevated AST secondary to above. #7 Poor coping mechanisms secondary to the loss of her . Plan: Patient underwent repeat right-sided thoracentesis today, 2.4 L of pleural fluid was removed, it was sent for cytology. Cytology results from the first thoracentesis and paracentesis were negative. The patient may likely need biweekly paracentesis. From pulmonary perspective patient be discharged home today, she has a PICC line placed for infusions of IV antibiotics for MRSA in the pleural fluid. We'll cut back the dose of Lasix to 40 mg daily, we'll stop the Aldactone, patient may become severely volume depleted, and the current recurrence of her ascites and pleural effusions are related to her low oncotic pressure, than fluid overload. Follow-up with Dr. Ramey in the office in 7-10 days. I performed a history & physical examination of the patient and discussed their management with my nurse practitioner, Lakeisha Harrell. I reviewed the nurse practitioner's note and agree with the documented findings and plan of care. Lung sounds are positive for diminished breath sounds at the bases. The findings and the impression was discussed with the patient. I attest to the documentation by the nurse practitioner. Time with Patient: Less than 30
--- NOTE | 2018-04-26 16:47 | PN ---
PROGRESS NOTE DATE OF SERVICE: 04/26/2018. REASON FOR FOLLOWUP: MRSA right-sided empyema. INTERVAL HISTORY: The patient is afebrile. The patient is status post right-sided thoracocentesis as well as paracentesis with more than 2 L of fluid removed. The patient has been breathing comfortably. Denies having any chest pain. No cough. No abdominal pain or any diarrhea. PHYSICAL EXAMINATION: Blood pressure 105/56, pulse of 99, temperature 98. She is 98% on 3 L nasal cannula. General description is a middle-aged female lying in bed in no distress. RESPIRATORY SYSTEM: Unlabored breathing with decreased breath sounds at the base. No wheeze. HEART: S1, S2. Regular rate and rhythm. ABDOMEN: Soft. No tenderness. LABS: Hemoglobin is 11.8, white count 9.5, BUN of 8, creatinine 0.53. DIAGNOSTIC IMPRESSION AND PLAN: Patient with pleural fluid culture positive on the right side done with thoracocentesis which was cloudy, methicillin-resistant Staphylococcus aeruginosa. Patient at this time is to continue with vancomycin, Pharmacy to dose, target of 15, for at least 2 weeks with close outpatient followup. Continue with supportive care. MMODL / IJN: [id number] /
--- NOTE | 2018-04-27 07:30 | US ---
EXAMINATION TYPE: US paracentesis abd w/image DATE OF EXAM: 04/25/2018 COMPARISON: NONE HISTORY: Ascites. PROCEDURE: Maximal barrier technique was utilized. The skin overlying a suitable pocket of fluid was localized with ultrasound and the overlying skin was prepped and draped. Ultrasound was utilized with sterile technique. Lidocaine was used for local anesthesia and a skin chaparrita made with a scalpel. Catheter was advanced under direct ultrasound guidance into a suitable pocket of fluid and approximately 2.7 liter s of serous fluid were removed. Catheter was withdrawn and hemostasis achieved. There is no immedia te complication; the patient is discharged in stable condition. IMPRESSION: STATUS POST ULTRASOUND GUIDED PARACENTESIS FOR PALLIATION OF ASCITES. THIS PROCEDURE WA S PERFORMED BY THE UNDERSIGNED.
[2018-04-27] MEDS ORDERED: FUROSEMIDE 40 MG TAB PO SCH (09:00)
--- NOTE | 2018-04-27 12:02 | P.DS ---
Providers Date of admission: 04/19/18 13:26 Attending physician: Moses Wright Consults: 04/19/18 02:21 Consult Physician Routine Consulting Provider: Cuca Ramey Consult Reason/Comments: Pleural effusion Do you want consulting provider notified?: Yes, Notify in am 04/23/18 14:22 Consult Physician Urgent Consulting Provider: fErain Coley Consult Reason/Comments: MRSA Do you want consulting provider notified?: Yes Primary care physician: Elvis Smith Hospital Course: Diagnoses: Shortness of breath secondary to large right pleural effusion. Status post thoracentesis which is transected date abdominal distention with ascites. Status post ultrasound-guided paracentesis. Positive for MRSA in the pleural fluid culture, which is transudate. Alcoholic liver cirrhosis Coagulopathy secondary to liver disease Alcohol abuse Macrocytosis Hyperbilirubinemia Hypoalbuminemia Morbid obesity BMI 36.2 Hospital course: Patient is a 52-year-old female with a known history of recently diagnosed alcoholic liver cirrhosis about a month back, came to ER with complaints of worsening shortness of breath for the past 2 weeks. Patient also having abdominal distention. Patient has been treated with thoracocentesis and paracentesis, which she needed a twice with a second one prior to discharge. she was placed on Lasix, Aldactone and low-salt diet. Patient has been followed up by pulmonary and GI team. patient felt better and her dyspnea and abdominal distention improved. No more abdominal pain or chest pain. And she is tolerating diet well and having bowel movement. However pleural fluid culture came back positive for MRSA. Infectious disease team evaluated the patient and recommended PICC line and continue intravenous vancomycin as an outpatient. Patient was cleared for discharge by GI and pulmonary team, as well as by infectious disease team. Problem list and management plan was discussed with the patient the details verbalized understanding and acceptance Patient was found stable and can be discharged home however she needs follow-up as an outpatient. Patient is recommended to follow-up with Dr. Cooley from interventional radiology in 1 week for the need to repeat In her ascites and pleural fluid if indicated. i called her pcp office and made appointment for her with pcp tomorrow 04/27/18. was not available so appointment was made with Kavita COLORADO who works with him and i updated her with the case and the need to monitor her labs eg creatinine and the need for close follow up including with the recommended . and she kindly took note for this . pt agrees to f/u with Kavita tomorrow . she agrees with other appointments . physical exam Gen: patient is a AAOx3, no distress CVS: S1-S2, RRR, no murmur Lungs: B/L CTA, no wheezing Abdomen: soft, mild abdominal distention, no tenderness, positive bowel sounds. Extremity: no leg edema or induration Time spent more than 35 minutes Addendum After patient left yesterday, pulmonology team put recommendation to lower her Lasix from 18 down to 14 mg daily and to hold her Aldactone for risk of volume depletion after the paracentesis and thoracocentesis. I called her physician clerical administrative assistant at her PCP office MIROSLAVA Walls and updated her with this recommendation and the rationale behind them and she kindly took note of them, also she told me that the patient wanted to consult appointments but they asked that to come to the PCP office anyway and she is coming at 2:40 pm this afternoon. Also she will check her labs Plan - Discharge Summary Discharge Rx Participant: No New Discharge Prescriptions: New Vancomycin 1,750 mg IVPB Q12HR #28 bag Famotidine [Pepcid] 20 mg PO Q12HR #28 tab Continue Spironolactone 50 mg PO DAILY Potassium Chloride [Klor-Con 10] 10 meq PO Q48H Furosemide [Lasix] 80 mg PO DAILY Discharge Medication List Furosemide [Lasix] 80 mg PO DAILY 04/18/18 [History] Potassium Chloride [Klor-Con 10] 10 meq PO Q48H 04/18/18 [History] Spironolactone 50 mg PO DAILY 04/18/18 [History] Famotidine [Pepcid] 20 mg PO Q12HR #28 tab 04/25/18 [Rx] Vancomycin 1,750 mg IVPB Q12HR #28 bag 04/25/18 [Rx] Follow up Appointment(s)/Referral(s): Daryl Cooley MD [STAFF PHYSICIAN] - 1 Week (pleural effusion and ascitis for possible need for drainage) Elizabeth Mittal MD [STAFF PHYSICIAN] - 05/01/18 3:00 pm (alcoholic liver cirrhosis ) Hao Anaya DO [Doctor of Osteopathic Medicine] - 05/08/18 9:30 am [facility], [NON-STAFF] - 1 Week [facility], [REFERRING] - 1 Week Elvis Smith DO [Primary Care Provider] - 04/27/18 3:00 pm (with Kavita [place]ORADO.) Efrain Coley MD [STAFF PHYSICIAN] - 05/01/18 2:45 pm Ambulatory/Diagnostic Orders: Basic Metabolic Panel [LAB.AMB] Location: None Selected Complete Blood Count w/diff [LAB.AMB] Location: None Selected C Reactive Protein [LAB.AMB] Location: None Selected Activity/Diet/Wound Care/Special Instructions: low salt diet activity is limited until you see your doctor discontinue the picc line when you are done with your intravenous antibiotic please keep oxygen via nasal canula at 2 L/M Discharge Disposition: HOME WITH HOME HEALTH SERVICES
== END 2018-04-26 16:15 | disposition home health service (06) | DRG 871 ==
LOC: EC 13:16 → 3NMEDONC 16:09 → OBSVTOIN 04-19 13:26
PROVIDERS: ADMIT Internal Medicine; ATTEND Internal Medicine
PROC: 0W9G3ZX Drainage of Peritoneal Cavity, Percutaneous Approach, Diagnostic (ICD-10-PCS; 2018-04-21)
PROC: 02HV33Z Insertion of Infusion Device into Superior Vena Cava, Percutaneous Approach (ICD-10-PCS; principal; 2018-04-24 14:45)
PROC: 0W993ZX Drainage of Right Pleural Cavity, Percutaneous Approach, Diagnostic (ICD-10-PCS; 2018-04-26)
DX: A41.02 Sepsis due to Methicillin resistant Staphylococcus aureus (principal); J86.9 Pyothorax without fistula; D68.4 Acquired coagulation factor deficiency; D68.69 Other thrombophilia; J90 Pleural effusion, not elsewhere classified; J98.11 Atelectasis; D75.89 Other specified diseases of blood and blood-forming organs; E66.01 Morbid (severe) obesity due to excess calories; E87.6 Hypokalemia; E88.09 Other disorders of plasma-protein metabolism, not elsewhere classified; F10.10 Alcohol abuse, uncomplicated; K70.31 Alcoholic cirrhosis of liver with ascites; R09.02 Hypoxemia; Z68.36 Body mass index [BMI] 36.0-36.9, adult; Z79.899 Other long term (current) drug therapy; E80.6 Other disorders of bilirubin metabolism; H35.30 Unspecified macular degeneration; Z63.4 Disappearance and death of family member; Z90.49 Acquired absence of other specified parts of digestive tract
CPT/HCPCS: 36415; 36573; 49083; 71045; 71046; 71260; 76604; 76705; 80048; 80053; 80202; 82042; 82550; 82553; 82945; 83615; 83735; 83880; 84132; 84157; 84484; 85025; 85610; 85730; 86850; 86900; 86901; 87070; 87077; 87102; 87116; 87186; 87205; 87206; 88108; 88305; 89050; 93005; 96360; 96361; 99285

== ENCOUNTER → 2018-04-27 | Outpatient (CLI) | payer MEDICAID ==
--- NOTE | 2018-04-27 15:16 | XR ---
EXAMINATION TYPE: XR chest 2V DATE OF EXAM: 04/27/2018 COMPARISON: Chest x-ray from yesterday. HISTORY: Abnormal chest x-ray, pleural effusion progress study. TECHNIQUE: Frontal and lateral views of the chest are obtained. FINDINGS: Right-sided PICC line is redemonstrated, tip now is near brachiocephalic confluence with lo ss of inferior course versus prior. There is improved aeration left lung base. Improved inspiration i s seen on current study. There is persistent moderate to large right pleural effusion with associate d right basilar atelectasis and/or infiltrate. Silhouetting of right hemidiaphragm and right heart nemo rder are redemonstrated. Subtle mediastinal shift to the left is felt present on current study. The o sseous structures are intact. IMPRESSION: Improved inspiration on current study. Persistent moderate to large size right pleural e ffusion with associated right lung atelectasis and/or infiltrate. Right-sided effusion is felt slight ly larger versus most recent prior. Improved aeration left lung base noted. PICC line tip position ch anged from SVC since most recent study.
== END | disposition home or self-care (01) ==
LOC: RADXRYALE 14:53
PROVIDERS: ATTEND Physician Assistant Medical
DX: J90 Pleural effusion, not elsewhere classified (principal); Z95.828 Presence of other vascular implants and grafts
CPT/HCPCS: 71046